=== PATIENT | female | born 1965 | race Caucasian/White ===

== ENCOUNTER → 2016-11-18 | Outpatient (CLI) | payer OTHER | LOC: M WUC 13:45 | PROVIDERS: ATTEND Physician Assistant Medical | DX: E78.2 Mixed hyperlipidemia (principal) ==

== ENCOUNTER → 2016-11-19 | Outpatient (REF) | payer OTHER | LOC: M SFHCPLAZ 15:31 | PROVIDERS: ATTEND Physician Assistant Medical | DX: R35.0 Frequency of micturition (principal) ==

== ENCOUNTER → 2016-11-24 | Outpatient (CLI) | payer OTHER ==
[2016-11-24 19:16] LABS: MEAN CORPUSCULAR HEMOGLOBIN 31.9 pg (27.0-33.0); MEAN CORPUSCULAR HGB CONC 32.7 g/dl (32.0-36.5); MEAN CORPUSCULAR VOLUME 97.7 fl (80.0-96.0); RED CELL DISTRIBUTION WIDTH 12.7 % (11.5-14.5); WHITE BLOOD COUNT 9.8 K/mm3 (4.0-10.0)
[2016-11-24 19:17] LABS: ALBUMIN 3.8 GM/DL (3.2-5.2); ALBUMIN/GLOBULIN RATIO 1.27 (1.00-1.93); ALKALINE PHOSPHATASE 94 U/L (45-117); ALT/SGPT 35 U/L (12-78); ANION GAP 6 MEQ/L (8-16); AST/SGOT 15 U/L (15-37); BILIRUBIN,TOTAL 0.3 MG/DL (0.2-1.0); BLOOD UREA NITROGEN 16 MG/DL (7-18); CALCIUM LEVEL 8.5 MG/DL (8.5-10.1); CARBON DIOXIDE LEVEL 25 MEQ/L (21-32); CHLORIDE LEVEL 111 MEQ/L (98-107); COMPLEMENT C3 139 MG/DL (90-180); COMPLEMENT C4 34.9 MG/DL (10-40); CREATININE FOR GFR 0.87 MG/DL (0.55-1.02); GLOMERULAR FILTRATION RATE > 60.0 (>51); GLUCOSE, FASTING 83 MG/DL (70-105); POTASSIUM SERUM 4.7 MEQ/L (3.5-5.1); SODIUM LEVEL 142 MEQ/L (136-145); THYROXINE (T4) 7.5 UG/DL (4.5-12.0); TOTAL PROTEIN 6.8 GM/DL (6.4-8.2)
[2016-11-24 19:22] LABS: THYROID PEROXIDASE ANTIBODY 33.4 U/ML (<60.0)
[2016-11-25 09:24] LABS: CONTROL LINE HPYORI INT CTR LINE PRESENT
== END ==
LOC: M SMT 14:07
PROVIDERS: ATTEND Allergy & Immunology Allergy
DX: L50.1 Idiopathic urticaria (principal)

== ENCOUNTER → 2017-01-11 | Outpatient (CLI) | payer OTHER ==
[2017-01-11 10:42] LABS: ALBUMIN 3.5 GM/DL (3.2-5.2); ALBUMIN/GLOBULIN RATIO 1.09 (1.00-1.93); ALKALINE PHOSPHATASE 95 U/L (45-117); ALT/SGPT 36 U/L (12-78); AST/SGOT 14 U/L (15-37); BILIRUBIN,DIRECT < 0.1 MG/DL (0.0-0.2); BILIRUBIN,TOTAL 0.3 MG/DL (0.2-1.0); CHOLESTEROL LEVEL 166 MG/DL (<200); TOTAL PROTEIN 6.7 GM/DL (6.4-8.2); TRIGLYCERIDES LEVEL 93 MG/DL (<150)
== END ==
LOC: M WUC 08:29
PROVIDERS: ATTEND Physician Assistant Medical
DX: E78.2 Mixed hyperlipidemia (principal); E78.00 Pure hypercholesterolemia, unspecified

== ENCOUNTER → 2017-03-10 | Outpatient (REF) | payer OTHER | LOC: M SFHCPLAZ 15:24 | PROVIDERS: ATTEND Physician Assistant Medical | DX: R30.0 Dysuria (principal) ==

== ENCOUNTER → 2017-09-11 | Outpatient (CLI) | payer OTHER ==
--- NOTE | 2017-09-11 16:32 | REP ---
Left foot four views : There is no fracture or dislocation. Mineralization and joint spaces are normal. There are no calcifications or foreign bodies. Impression: Negative left foot . Signed by Yemi Kelly MD 09/11/2017 04:23 P
--- NOTE | 2017-09-11 16:32 | REP ---
Left ankle four views : There is no fracture or dislocation. Mineralization and joint spaces are normal. There are no calcifications or foreign bodies. Impression: Negative left ankle . Signed by Yemi Kelly MD 09/11/2017 04:22 P
== END ==
LOC: M WUC 16:05
PROVIDERS: ATTEND Physician Assistant
DX: M25.572 Pain in left ankle and joints of left foot (principal)

== ENCOUNTER → 2017-09-14 | Outpatient (REF) | payer OTHER | LOC: M SFHCPLAZ 11:43 | PROVIDERS: ATTEND Physician Assistant Medical | DX: R82.90 Unspecified abnormal findings in urine (principal) ==

== ENCOUNTER → 2017-09-14 | Outpatient (REF) | payer OTHER | LOC: M SFHCPLAZ 08:55 | PROVIDERS: ATTEND Physician Assistant Medical | DX: E66.9 Obesity, unspecified (principal); R82.90 Unspecified abnormal findings in urine; Z53.9 Procedure and treatment not carried out, unspecified reason ==

== ENCOUNTER → 2017-10-19 | Outpatient (REF) | payer OTHER ==
[2017-10-19 18:18] LABS: ESTIMATED AVERAGE GLUCOSE 117 MG/DL (60-110); HEMOGLOBIN A1c 5.7 %
[2017-10-19 19:07] LABS: ALBUMIN 3.5 GM/DL (3.2-5.2); ALBUMIN/GLOBULIN RATIO 1.13 (1.00-1.93); ALKALINE PHOSPHATASE 94 U/L (45-117); ALT/SGPT 32 U/L (12-78); ANION GAP 6 MEQ/L (8-16); AST/SGOT 14 U/L (7-37); BILIRUBIN,TOTAL 0.3 MG/DL (0.2-1.0); BLOOD UREA NITROGEN 14 MG/DL (7-18); CALCIUM LEVEL 8.4 MG/DL (8.5-10.1); CARBON DIOXIDE LEVEL 26 MEQ/L (21-32); CHLORIDE LEVEL 110 MEQ/L (98-107); GLOMERULAR FILTRATION RATE > 60.0 (>51); GLUCOSE, FASTING 79 MG/DL (70-100); POTASSIUM SERUM 3.7 MEQ/L (3.5-5.1); SODIUM LEVEL 142 MEQ/L (136-145); TOTAL PROTEIN 6.6 GM/DL (6.4-8.2)
== END ==
LOC: M SFHCPLAZ 15:09
DX: E66.9 Obesity, unspecified (principal); R82.90 Unspecified abnormal findings in urine
CPT/HCPCS: 83036

== ENCOUNTER → 2017-11-19 | Outpatient (CLI) | payer OTHER | LOC: M WUC 09:58 | DX: M79.672 Pain in left foot (principal); M77.32 Calcaneal spur, left foot | CPT/HCPCS: 73630 ==

== ENCOUNTER → 2018-01-15 | Outpatient (CLI) | payer OTHER ==
[2018-01-19 00:06] LABS: HSV IgM TYPES 1&2 <0.91 Ratio (0.00-0.90)
== END ==
LOC: M LRY 08:33
DX: B00.9 Herpesviral infection, unspecified (principal)
CPT/HCPCS: 86694

== ENCOUNTER → 2018-01-29 | Outpatient (CLI) | payer OTHER | LOC: M WUC 12:31 | DX: S00.83XA Contusion of other part of head, initial encounter (principal); X58.XXXA Exposure to other specified factors, initial encounter; Y92.89 Other specified places as the place of occurrence of the external cause | CPT/HCPCS: 70150 ==

== ENCOUNTER 2018-02-24 08:01 | Day surgery (SDC) | payer OTHER ==
[2018-02-24] MEDS: NS 1,000 ML IV (08:30)
[2018-02-24] MEDS ORDERED: PROPOFOL 200 MG/20 ML VIAL As Ordered (09:53)
== END 2018-02-24 10:36 | disposition home or self-care (01) ==
LOC: M OPP 08:01
DX: Z12.11 Encounter for screening for malignant neoplasm of colon (principal); D12.2 Benign neoplasm of ascending colon; K64.8 Other hemorrhoids; E78.00 Pure hypercholesterolemia, unspecified; M17.9 Osteoarthritis of knee, unspecified; M54.5 Low back pain; G43.909 Migraine, unspecified, not intractable, without status migrainosus; L50.8 Other urticaria; R06.83 Snoring; Z79.899 Other long term (current) drug therapy; Z91.89 Other specified personal risk factors, not elsewhere classified; Z88.0 Allergy status to penicillin; Z90.710 Acquired absence of both cervix and uterus; Z87.09 Personal history of other diseases of the respiratory system; Z92.3 Personal history of irradiation
CPT/HCPCS: 45385

== ENCOUNTER → 2019-04-04 | Outpatient (CLI) | payer OTHER ==
[~2019-04-04] MED LIST: ALLE180T33 PO; ATOR1TAB21 PO; GABA-1171 PO; HYDR-3363 PO; LEVOTAB10 PO; MELO7.5T7 PO; MONT10TA2 PO; RANI150T PO; TOPI25TA10 PO; WELL100T2 PO
--- NOTE | 2019-04-04 22:10 | REP ---
Clinical: Pain and disability. Technique: AP, lateral, bilateral oblique, flexion/extension, and coned-down views of the lumbosacral spine. Findings: Alignment and lordosis maintained. Mild/moderate multilevel degenerative changes include endplate sclerosis with disc space narrowing and osteophytosis primarily identified at L5-S1, L4-5, and L1-2. No acute fracture / compression injury or subluxation. No obvious spondylolysis. Impression: Mild/moderate multilevel degenerative spondylosis. Electronically Signed by Cedric Fierro MD 04/04/2019 10:00 P
--- NOTE | 2019-04-04 22:10 | REP ---
Clinical: thoracic pain. Technique: AP, lateral, and swimmers views. Findings: Alignment and kyphosis is maintained. Vertebral bodies intact. No acute fracture / compression injury or subluxation. No degenerative changes. Paravertebral soft tissues are normal. Impression: Normal thoracic spine series. Electronically Signed by Cedric Fierro MD 04/04/2019 10:01 P
== END ==
LOC: M RAD 09:40
PROVIDERS: ATTEND Family Medicine
DX: M51.36 Other intervertebral disc degeneration, lumbar region (principal)

== ENCOUNTER 2019-05-10 11:04 | Emergency (ER) | payer OTHER ==
[~2019-05-10] VITALS: Ht 165.1 cm; Wt 101.4 kg
[2019-05-10] MEDS ORDERED: KETOROLAC 30 MG/ML VIAL (J1885) IV ONE (11:45)
[2019-05-10] MEDS ORDERED: ACETAMINOPHEN 325 MG TAB PO ONE (11:45)
[2019-05-10] MEDS ORDERED: NS 1,000 ML IV ONE (11:45)
[2019-05-10] MEDS ORDERED: METOCLOPRAMIDE INJ 10MG/2ML VIAL (J2765) IV ONE (13:15)
[2019-05-10 14:14] VITALS: BP 136/81
== END 2019-05-10 14:32 | disposition home or self-care (01) ==
LOC: M ED 11:04
DX: G43.909 Migraine, unspecified, not intractable, without status migrainosus (principal); Z79.899 Other long term (current) drug therapy; Z88.1 Allergy status to other antibiotic agents; Z91.018 Allergy to other foods
CPT/HCPCS: 96374; 96375; 99284; J1885; J2765

== ENCOUNTER → 2019-09-21 | Outpatient (CLI) | payer OTHER ==
[2019-09-21 12:58] LABS: HEMATOCRIT 43.8 % (36.0-47.0); MEAN CORPUSCULAR VOLUME 97.1 fl (80.0-96.0); PLATELET COUNT, AUTOMATED 355 10^3/uL (150-450); RED BLOOD COUNT 4.51 10^6/uL (4.00-5.40); WHITE BLOOD COUNT 5.4 10^3/uL (4.0-10.0)
--- NOTE | 2019-09-21 12:58 | REP ---
Clinical: Obesity . Comparison: None . Technique: PA and lateral. Findings: The mediastinum and cardiac silhouette are normal. The lung pitt are clear and without acute consolidation, effusion, or pneumothorax. The skeletal structures are intact and normal. Impression: 1. No acute cardiopulmonary process. Electronically Signed by Cedric Fierro MD 09/21/2019 12:49 P
[2019-09-21 13:20] LABS: HEMOGLOBIN A1c 5.9 %
[2019-09-21 13:29] LABS: ALBUMIN 3.5 GM/DL (3.2-5.2); ALT/SGPT 62 U/L (12-78); BILIRUBIN,TOTAL 0.4 MG/DL (0.2-1.0); BLOOD UREA NITROGEN 18 MG/DL (7-18); CARBON DIOXIDE LEVEL 26 MEQ/L (21-32); CHLORIDE LEVEL 112 MEQ/L (98-107); CHOLESTEROL LEVEL 200 MG/DL (<200); CHOLESTEROL RISK RATIO 3.389 (<5); CREATININE FOR GFR 0.96 MG/DL (0.55-1.30); FERRITIN 149 NG/ML (8-252); FREE T4 0.87 NG/DL (0.76-1.46); GLOMERULAR FILTRATION RATE > 60.0 (>51); GLUCOSE, FASTING 82 MG/DL (70-100); HDL CHOLESTEROL 59 MG/DL (>40); IRON (FE) 100 UG/DL (50-170); LDL CHOLESTEROL 120 MG/DL (<100); NON-HDL-C 141 MG/DL; PERCENT SATURATION 38.6 % (13.2-45.0); POTASSIUM SERUM 4.1 MEQ/L (3.5-5.1); SODIUM LEVEL 144 MEQ/L (136-145); TOTAL 25(OH) VITAMIN D 26.4 NG/ML (30.0-100.0); TOTAL IRON BINDING CAPACITY 259 UG/DL (250-450); TRIGLYCERIDES LEVEL 103 MG/DL (<150); VITAMIN B12 LEVEL 434 PG/ML (247-911)
[2019-09-21 13:45] LABS: FOLATE 14.3 NG/ML (>5.4)
== END ==
LOC: M LAB 12:15
PROVIDERS: ATTEND Surgery
DX: E66.01 Morbid (severe) obesity due to excess calories (principal)

== ENCOUNTER → 2019-09-24 | Outpatient (CLI) | payer OTHER ==
--- NOTE | 2019-09-24 09:38 | REP ---
Clinical: Preoperative evaluation. Technique: Real time rose scale and color evaluation using curved array transducer. Findings: Liver includes 2.5 x 1.3 x 1.7 cm septated cyst in the left lobe, and is otherwise unremarkable in appearance. The pancreas is incompletely evaluated due to interposed bowel gas but visualized portions appear normal. Gallbladder is unremarkable and without gallstones, wall thickening, or pericholecystic fluid. No biliary ductal dilatation is appreciated and the common bile duct measures 5 mm diameter. The right kidney is normal in reniform shape without hydronephrosis and measures 11.0 x 5.5 x 5.0 cm with 1.1 cm complex lower pole cyst. No ascites. Impression: 1. 2.5 cm septated hepatic cyst. 2. 1.1 cm complex lower pole right renal lesion likely complex cyst. Electronically Signed by Cedric Fierro MD 09/24/2019 09:30 A
== END ==
LOC: M RAD 08:56
PROVIDERS: ATTEND Registered Nurse
DX: N28.1 Cyst of kidney, acquired (principal); K76.89 Other specified diseases of liver; E66.01 Morbid (severe) obesity due to excess calories

== ENCOUNTER 2019-10-22 11:21 | Emergency (ER) | payer OTHER ==
[~2019-10-22] VITALS: Ht 165.1 cm; Wt 106.0 kg
[2019-10-22] MEDS ORDERED: CALC500C16 (12:03)
[2019-10-22] MEDS ORDERED: OMEP-221 (12:03)
[2019-10-22] MEDS ORDERED: PARO5TAB (12:03)
--- NOTE | 2019-10-22 13:04 | REP ---
Right ankle four views : There is no fracture or dislocation. Mineralization and joint spaces are normal. There are no calcifications or foreign bodies. There is a small accessory ossicle at the tip of the fibula. Impression: Negative right ankle. Left ankle four views : There is no fracture or dislocation. Mineralization and joint spaces are normal. There are no calcifications or foreign bodies. Impression: Negative left ankle . Electronically Signed by Yemi Kelly MD 10/22/2019 12:55 P
--- NOTE | 2019-10-22 13:06 | REP ---
Right foot four views : There is no fracture or dislocation. Mineralization and joint spaces are normal. There are no calcifications or foreign bodies. Impression: Negative right foot Left foot four views : There is no fracture or dislocation. Mineralization and joint spaces are normal. There are no calcifications or foreign bodies. Impression: Negative left foot . . Electronically Signed by Yemi Kelly MD 10/22/2019 12:57 P
[2019-10-22] MEDS ORDERED: NORC1TAB7 PO (14:03)
[2019-10-22 14:22] VITALS: BP 138/91
== END 2019-10-22 14:28 | disposition home or self-care (01) ==
LOC: M ED 11:21
DX: S93.402A Sprain of unspecified ligament of left ankle, initial encounter (principal); S90.31XA Contusion of right foot, initial encounter; W00.1XXA Fall from stairs and steps due to ice and snow, initial encounter; Z79.899 Other long term (current) drug therapy; Z88.8 Allergy status to other drugs, medicaments and biological substances; Z91.02 Food additives allergy status

== ENCOUNTER 2019-12-02 11:57 | Emergency (ER) | payer OTHER ==
[~2019-12-02] VITALS: Ht 165.1 cm; Wt 106.9 kg
[~2019-12-02 11:57] MED LIST changes: +CALC500C16; -MONT10TA2 PO; +MONT10TA4 PO; +NORC1TAB7 PO; +OMEP-221; +PARO5TAB
--- NOTE | 2019-12-02 12:44 | REP ---
Right shoulder series: Three views. History: Injury in a fall. Findings: Three views of the right shoulder demonstrate normal alignment of the glenohumeral and acromioclavicular joints. No fracture or subluxation is seen. There is minimal spurring at the AC joint. Impression: No traumatic abnormality noted. Electronically Signed by Satnam Beck MD 12/02/2019 12:36 P
[2019-12-02] MEDS ORDERED: NORC1TAB7 PO (13:00)
[2019-12-02 13:11] VITALS: BP 150/82
== END 2019-12-02 13:16 | disposition home or self-care (01) ==
LOC: M ED 11:57
DX: S49.91XA Unspecified injury of right shoulder and upper arm, initial encounter (principal); W01.0XXA Fall on same level from slipping, tripping and stumbling without subsequent striking against object, initial encounter; Y92.018 Other place in single-family (private) house as the place of occurrence of the external cause; E78.5 Hyperlipidemia, unspecified; Z79.899 Other long term (current) drug therapy; Z91.018 Allergy to other foods; Z88.1 Allergy status to other antibiotic agents; F17.210 Nicotine dependence, cigarettes, uncomplicated

== ENCOUNTER 2020-01-25 00:46 | Emergency (ER) | payer OTHER ==
[~2020-01-25] VITALS: Ht 165.1 cm; Wt 93.9 kg
[2020-01-25] MEDS ORDERED: ONDANSETRON 4MG/2ML VIAL IV ONE ×2 (01:30→03:15)
[2020-01-25] MEDS ORDERED: KETOROLAC 30 MG/ML 1ML VIAL IV ONE ×2 (01:30→03:00)
[2020-01-25] MEDS ORDERED: MULTCAP PO (01:40)
[2020-01-25] MEDS ORDERED: B-12100T2 PO (01:40)
[2020-01-25 01:59] LABS: BASO % 0.3 % (0.0-1.0); EOS # 0.1 10^3/uL (0.0-0.5); EOS % 1.4 % (0.0-3.0); HEMATOCRIT 39.3 % (36.0-47.0); HEMOGLOBIN 12.7 g/dl (12.0-15.5); LYMPH # 2.1 10^3/uL (1.5-5.0); LYMPH % 29.5 % (24.0-44.0); MEAN CORPUSCULAR HEMOGLOBIN 30.3 pg (27.0-33.0); MEAN CORPUSCULAR HGB CONC 32.3 g/dl (32.0-36.5); MEAN CORPUSCULAR VOLUME 93.8 fl (80.0-96.0); MONO # 0.4 10^3/uL (0.0-0.8); MONO % 5.4 % (0.0-5.0); NEUTROPHILS # 4.5 10^3/uL (1.5-8.5); NEUTROPHILS % 63.1 % (36.0-66.0); PLATELET COUNT, AUTOMATED 289 10^3/uL (150-450); RED BLOOD COUNT 4.19 10^6/uL (4.00-5.40); WHITE BLOOD COUNT 7.1 10^3/uL (4.0-10.0)
--- NOTE | 2020-01-25 02:48 | REPVR ---
PROCEDURE INFORMATION: Exam: CT Abdomen And Pelvis Without Contrast Exam date and time: 01/25/2020 2:21 AM Age: 54 years old Clinical indication: Abdominal pain; Flank; Right; Additional info: Right renal colic TECHNIQUE: Imaging protocol: Computed tomography of the abdomen and pelvis without contrast. Radiation optimization: All CT scans at this facility use at least one of these dose optimization techniques: automated exposure control; mA and/or kV adjustment per patient size (includes targeted exams where dose is matched to clinical indication); or iterative reconstruction. COMPARISON: CT ABD PELVIS W/O FOL BY WIT 05/13/2015 9:24 AM FINDINGS: Lungs: Bilateral dependent atelectasis. Linear atelectasis or scarring in the left lower lobe. Mediastinum: Small hiatal hernia. Liver: Simple appearing 1.7 x 1 cm left hepatic lobe cyst. Focal fat in the left hepatic lobe along the falciform ligament fissure. Gallbladder and bile ducts: Distended gallbladder without specific signs of acute cholecystitis. Pancreas: Normal. No ductal dilation. Spleen: Normal. No splenomegaly. Adrenals: Normal. No mass. Kidneys and ureters: Mild right hydroureteronephrosis to the level of a 3 mm calculus in the distal right ureter. Stomach and bowel: Status post Coleman-en-Y gastric bypass. Appendix: No evidence of appendicitis. Intraperitoneal space: Unremarkable. No free air. No significant fluid collection. Vasculature: Unremarkable. No abdominal aortic aneurysm. Lymph nodes: Unremarkable. No enlarged lymph nodes. Bladder: Unremarkable as visualized. Reproductive: Status post hysterectomy. Bones/joints: Mild levoscoliosis of the lumbar spine. Degenerative disease and facet hypertrophy of the lower lumbar spine. Soft tissues: Unremarkable. IMPRESSION: Mild right hydroureteronephrosis to the level of a 3 mm calculus in the distal right ureter. Electronically signed by: Clay Cook On 01/25/2020 02:48:14 AM
[2020-01-25] MEDS ORDERED: PERC5TAB12 PO (06:46)
[2020-01-25] MEDS ORDERED: ONDA4TAB6 PO (06:46)
[2020-01-25] MEDS ORDERED: FLOM0.4C39 PO (06:46)
[2020-01-25] MEDS ORDERED: NORC1TAB7 PO (06:50)
[2020-01-25 07:13] VITALS: BP 110/68
== END 2020-01-25 07:15 | disposition home or self-care (01) ==
LOC: M ED 00:46
DX: N20.1 Calculus of ureter (principal); K44.9 Diaphragmatic hernia without obstruction or gangrene; K76.89 Other specified diseases of liver; R11.2 Nausea with vomiting, unspecified; E78.5 Hyperlipidemia, unspecified; M51.36 Other intervertebral disc degeneration, lumbar region; Z98.84 Bariatric surgery status; Z88.1 Allergy status to other antibiotic agents; Z79.899 Other long term (current) drug therapy
CPT/HCPCS: 74176; 80047; 81001; 85025; 87088; 87186; 96374; 96375; 96376; 99284; J1885; J2405

== ENCOUNTER → 2020-01-30 | Outpatient (REF) | payer OTHER ==
[~2020-01-30] MED LIST changes: +B-12100T2 PO; +FLOM0.4C39 PO; +MULTCAP PO; +ONDA4TAB6 PO; +PERC5TAB12 PO
[2020-01-30 13:32] LABS: ALBUMIN 3.2 GM/DL (3.2-5.2); ALT/SGPT 88 U/L (12-78); BILIRUBIN,TOTAL 0.5 MG/DL (0.2-1.0); BLOOD UREA NITROGEN 12 MG/DL (7-18); CALCIUM LEVEL 8.9 MG/DL (8.5-10.1); CARBON DIOXIDE LEVEL 26 MEQ/L (21-32); CHLORIDE LEVEL 111 MEQ/L (98-107); CHOLESTEROL LEVEL 203 MG/DL (<200); CHOLESTEROL RISK RATIO 5.205 (<5); CREATININE FOR GFR 0.86 MG/DL (0.55-1.30); GLOMERULAR FILTRATION RATE > 60.0 (>51); GLUCOSE, FASTING 84 MG/DL (70-100); HDL CHOLESTEROL 39 MG/DL (>40); LDL CHOLESTEROL 139 MG/DL (<100); NON-HDL-C 164 MG/DL; POTASSIUM SERUM 3.6 MEQ/L (3.5-5.1); SODIUM LEVEL 145 MEQ/L (136-145); TOTAL PROTEIN 6.3 GM/DL (6.4-8.2); TRIGLYCERIDES LEVEL 123 MG/DL (<150)
[2020-01-30 13:39] LABS: TOTAL 25(OH) VITAMIN D 30.1 NG/ML (30.0-100.0)
== END ==
LOC: M PLALAB 11:13
PROVIDERS: ATTEND Family Medicine
DX: N20.1 Calculus of ureter (principal); E78.2 Mixed hyperlipidemia; E55.9 Vitamin D deficiency, unspecified

== ENCOUNTER → 2020-02-20 | Outpatient (REF) | payer OTHER ==
[2020-02-20 18:54] LABS: APPEARANCE, URINE TURBID (CLEAR); BACTERIA, URINE AUTO NEGATIVE (NEGATIVE); BILIRUBIN, URINE AUTO NEGATIVE (NEGATIVE); BLOOD, URINE BLOOD NEGATIVE (NEGATIVE); CALCIUM OXALATE CRYSTALS MODERATE; COLOR, URINE AMBER (YELLOW); GLUCOSE, URINE (UA) AUTO NEGATIVE (NEGATIVE); KETONE, URINE AUTO NEGATIVE (NEGATIVE); LEUKOCYTE ESTERASE, URINE AUTO 2+ (NEGATIVE); MUCUS, URINE SMALL (NEGATIVE); NITRITE, URINE AUTO NEGATIVE (NEGATIVE); PROTEIN, URINE AUTO NEGATIVE (NEGATIVE); RBC, URINE AUTO 0 /HPF (0-3); SPECIFIC GRAVITY URINE AUTO 1.025 (1.002-1.035); SQUAMOUS EPITHELIAL CELL UR AU 11 /HPF (0-6); UROBILINOGEN, URINE AUTO 0.2 mg/dL (0.0-2.0); WBC, URINE AUTO 10 /HPF (0-3)
== END ==
LOC: M SMT 16:59
PROVIDERS: ATTEND Nurse Practitioner Family
DX: R31.29 Other microscopic hematuria (principal)

== ENCOUNTER → 2020-04-03 | Outpatient (REF) | payer OTHER ==
[~2020-04-03] MED LIST changes: -CALC500C16; +CALC500C16 PO; -OMEP-221; +OMEP-221 PO; +TRAM50TA2 PO
[2020-04-03 13:33] LABS: BASO % 0.8 % (0.0-1.0); EOS # 0.2 10^3/uL (0.0-0.5); EOS % 3.3 % (0.0-3.0); HEMATOCRIT 42.6 % (36.0-47.0); HEMOGLOBIN 13.8 g/dl (12.0-15.5); LYMPH # 2.1 10^3/uL (1.5-5.0); LYMPH % 41.1 % (24.0-44.0); MEAN CORPUSCULAR HEMOGLOBIN 30.9 pg (27.0-33.0); MEAN CORPUSCULAR HGB CONC 32.4 g/dl (32.0-36.5); MEAN CORPUSCULAR VOLUME 95.3 fl (80.0-96.0); MONO # 0.3 10^3/uL (0.0-0.8); NEUTROPHILS # 2.5 10^3/uL (1.5-8.5); NEUTROPHILS % 48.6 % (36.0-66.0); PLATELET COUNT, AUTOMATED 318 10^3/uL (150-450); RED BLOOD COUNT 4.47 10^6/uL (4.00-5.40); WHITE BLOOD COUNT 5.2 10^3/uL (4.0-10.0)
[2020-04-03 13:45] LABS: ALBUMIN 3.4 GM/DL (3.2-5.2); ALT/SGPT 50 U/L (12-78); BILIRUBIN,TOTAL 0.5 MG/DL (0.2-1.0); BLOOD UREA NITROGEN 11 MG/DL (7-18); CALCIUM LEVEL 9.2 MG/DL (8.5-10.1); CARBON DIOXIDE LEVEL 25 MEQ/L (21-32); CHLORIDE LEVEL 110 MEQ/L (98-107); CHOLESTEROL LEVEL 214 MG/DL (<200); CHOLESTEROL RISK RATIO 5.944 (<5); FERRITIN 179 NG/ML (8-252); GLOMERULAR FILTRATION RATE > 60.0 (>51); GLUCOSE, FASTING 87 MG/DL (70-100); HDL CHOLESTEROL 36 MG/DL (>40); IRON (FE) 64 UG/DL (50-170); LDL CHOLESTEROL 151 MG/DL (<100); NON-HDL-C 178 MG/DL; SODIUM LEVEL 143 MEQ/L (136-145); TOTAL PROTEIN 6.7 GM/DL (6.4-8.2); TRIGLYCERIDES LEVEL 135 MG/DL (<150)
[2020-04-08 10:11] LABS: AFP TUMOR TOTAL 3.3 ng/mL (0.0-8.0)
== END ==
LOC: M PLALAB 11:57
PROVIDERS: ATTEND Physician Assistant Medical
DX: Z98.84 Bariatric surgery status (principal); R79.89 Other specified abnormal findings of blood chemistry; E78.2 Mixed hyperlipidemia

== ENCOUNTER 2020-04-11 09:11 | Emergency (ER) | payer OTHER ==
[~2020-04-11] VITALS: Ht 165.1 cm; Wt 84.6 kg
[~2020-04-11 09:11] MED LIST changes: -TRAM50TA2 PO
--- NOTE | 2020-04-11 10:31 | REP ---
REASON FOR EXAM: Pain. No history of trauma given. FINDINGS: The joint spaces are symmetric and relatively well maintained. There is no evidence of acute fracture or destructive osseous lesion. IMPRESSION: Negative. Electronically Signed by Colt Mcnally DO 04/11/2020 11:27 A
--- NOTE | 2020-04-11 10:38 | REP ---
REASON FOR EXAM: Pain. COMPARISON: 10/22/2019 A tiny smoothly marginated well-corticated ossific density distal to the distal fibular tip is unchanged. There does appear to be some mild lateral soft tissue swelling representing a change from the prior exam, however. There is no acute fracture. The mortise remains intact. IMPRESSION: Soft tissue swelling. No evidence of an acute fracture or otherwise change from the prior exam as described above. Electronically Signed by Colt Mcnally DO 04/11/2020 11:27 A
[2020-04-11 11:12] VITALS: BP 132/85
[2020-04-11] MEDS ORDERED: TRAM50TA2 PO (13:09)
== END 2020-04-11 11:13 | disposition home or self-care (01) ==
LOC: M ED 09:11
DX: S93.401A Sprain of unspecified ligament of right ankle, initial encounter (principal); W18.49XA Other slipping, tripping and stumbling without falling, initial encounter; Y92.009 Unspecified place in unspecified non-institutional (private) residence as the place of occurrence of the external cause; Y93.9 Activity, unspecified; Y99.9 Unspecified external cause status; K21.9 Gastro-esophageal reflux disease without esophagitis; E78.5 Hyperlipidemia, unspecified; M89.8X9 Other specified disorders of bone, unspecified site; Z79.899 Other long term (current) drug therapy; Z87.828 Personal history of other (healed) physical injury and trauma; Z88.8 Allergy status to other drugs, medicaments and biological substances

== ENCOUNTER → 2020-05-22 | Outpatient (CLI) | payer OTHER ==
[~2020-05-22] MED LIST changes: +TRAM50TA2 PO
[2020-05-22 15:46] LABS: FREE T4 0.95 NG/DL (0.76-1.46); THYROID STIMULATING HORMONE 1.31 uIU/ML (0.358-3.740)
[2020-05-29 20:07] LABS: FATS NEUTRAL Increased (.); FATS TOTAL Increased (.); PANCREATIC ELASTASE STOOL >500 (>200)
== END ==
LOC: M LAB 14:26
PROVIDERS: ATTEND Internal Medicine Gastroenterology
DX: R19.7 Diarrhea, unspecified (principal)

== ENCOUNTER → 2020-06-03 | Outpatient (CLI) | payer OTHER ==
[~2020-06-03] MED LIST changes: +E-Z-GAS II EFFERVESCENT PACKET (SODIUM BICARB./CITRIC ACID/SIMETHICONE) As Ordered ONE; +E-Z-HD 98% w/w 340GM SUSP BTL As Ordered ONE; +E-Z-PAQUE 96% w/w SUSP 176GM BTL As Ordered ONE
--- NOTE | 2020-06-25 11:30 | REP ---
UPPER GI AIR CONTRAST AND SMALL BOWEL FOLLOW-THROUGH The procedure was performed under the direct supervision of Dr. Poole. The images were reviewed with Dr. Poole. The guest service team leader film shows no organomegaly or pathologic masses. The intestinal gas pattern is nonspecific. There are bowel sutures noted in the left abdomen consistent with the patients history of gastric bypass. Liquid barium was given in the erect and prone oblique positions in order to perform a single-contrast upper GI examination. Additionally, liquid barium was given at the end of the examination in order to perform a small bowel follow- through. The oral and pharyngeal stages of deglutition are unremarkable. Esophageal transport is prompt and efficient, and there is no esophagitis, stricture, or mucosal ring. There is a sliding-type hiatal hernia. Gastroesophageal reflux is not demonstrated on this examination. There are postsurgical changes of the stomach consistent with the patients history of gastric bypass. Contrast passes through the pouch and anastomosis without delay. There is no evidence of gastritis, neoplasm, or ulcer disease. There is no evidence of stricture or obstruction. The visualized portion of the proximal small bowel appears normal in course and caliber. The barium column was followed through the small bowel to the level of the terminal ileum. Small bowel transit time was approximately 90 minutes. During fluoroscopy, gentle palpation shows all loops are freely movable and pliable. There are no fixed or angulated loops. The small bowel mucosal pattern is normal in course and caliber. There is no transition to suggest a partial small bowel obstruction. Spot filming of the terminal ileum shows it to be unremarkable. IMPRESSION: Postsurgical changes of the stomach consistent with the patients history of gastric bypass. There is a sliding-type hiatal hernia. Otherwise, unremarkable single contrast upper gastrointestinal (GI) and small bowel follow-through examination. 1.3 minutes of fluoroscopy time was utilized for this procedure. [facility]
== END ==
LOC: M RAD 07:58
PROVIDERS: ATTEND Internal Medicine Gastroenterology
DX: R19.7 Diarrhea, unspecified (principal); K62.5 Hemorrhage of anus and rectum; Z98.84 Bariatric surgery status; K44.9 Diaphragmatic hernia without obstruction or gangrene

== ENCOUNTER 2020-07-08 11:05 | Emergency (ER) | payer OTHER ==
[~2020-07-08] VITALS: Ht 167.6 cm; Wt 75.4 kg
[~2020-07-08 11:05] MED LIST changes: -E-Z-GAS II EFFERVESCENT PACKET (SODIUM BICARB./CITRIC ACID/SIMETHICONE) As Ordered ONE; -E-Z-HD 98% w/w 340GM SUSP BTL As Ordered ONE; -E-Z-PAQUE 96% w/w SUSP 176GM BTL As Ordered ONE
--- NOTE | 2020-07-08 12:32 | REPVR ---
PROCEDURE INFORMATION: Exam: XR Left Knee Exam date and time: 07/08/2020 12:20 PM Age: 55 years old Clinical indication: Injury or trauma; Fall; Sprain or strain; Patella or knee; Left; Additional info: Left knee pain TECHNIQUE: Imaging protocol: XR Left knee. Views: 4 or more views. COMPARISON: No relevant prior studies available. FINDINGS: Bones/joints: No acute bony injury or malalignment. Soft tissues: No radiopaque foreign body. IMPRESSION: No acute bony injury or malalignment. Electronically signed by: Jesús Harris On 07/08/2020 12:32:32 PM
--- NOTE | 2020-07-08 12:32 | REPVR ---
PROCEDURE INFORMATION: Exam: XR Left Foot Complete Exam date and time: 07/08/2020 12:20 PM Age: 55 years old Clinical indication: Injury or trauma; Fall; Sprain or strain; Foot; Left; Additional info: Left foot pain TECHNIQUE: Imaging protocol: XR Left foot. Views: 3 or more views. COMPARISON: CR Foot, complete 10/22/2019 12:27 PM FINDINGS: Bones/joints: No acute bony injury or malalignment in the visualized left foot. Small calcaneal spur. Osteopenia and degenerative change. Soft tissues: No radiopaque foreign body. IMPRESSION: No acute bony injury or malalignment in the visualized left foot. Electronically signed by: Jesús Harris On 07/08/2020 12:31:59 PM
[2020-07-08 12:57] VITALS: BP 133/86
== END 2020-07-08 13:08 | disposition home or self-care (01) ==
LOC: M ED 11:05
DX: S83.92XA Sprain of unspecified site of left knee, initial encounter (principal); W01.0XXA Fall on same level from slipping, tripping and stumbling without subsequent striking against object, initial encounter; Y92.9 Unspecified place or not applicable; Y93.K1 Activity, walking an animal; Y99.9 Unspecified external cause status; K21.9 Gastro-esophageal reflux disease without esophagitis; E78.5 Hyperlipidemia, unspecified; F17.200 Nicotine dependence, unspecified, uncomplicated; Z79.899 Other long term (current) drug therapy; Z98.84 Bariatric surgery status; Z88.1 Allergy status to other antibiotic agents; Z91.02 Food additives allergy status

== ENCOUNTER → 2020-07-24 | Outpatient (CLI) | payer OTHER | LOC: M LABSMTC 10:42 | PROVIDERS: ATTEND Anesthesiology | DX: Z11.59 Encounter for screening for other viral diseases (principal); Z20.828 Contact with and (suspected) exposure to other viral communicable diseases | CPT/HCPCS: C9803; U0003 ==

== ENCOUNTER 2020-07-29 09:45 | Day surgery (SDC) | payer OTHER ==
[~2020-07-29] VITALS: Ht 167.6 cm; Wt 72.6 kg
[~2020-07-29 09:45] MED LIST changes: +LIDOCAINE 2% 100MG/5ML SDV (FOR ANES.) As Ordered ONE; +NS 1,000 ML IV ONE; +propofoL 200 MG/20 ML VIAL As Ordered ONE
--- NOTE | 2020-07-29 12:00 | ROOR ---
Patient Name: Adriana Maria Procedure Date: 07/29/2020 11:26 AM Date of : 1965 Age: 55 Room: [facility] Gender: Female Note Status: Finalized Procedure: Colonoscopy Indications: Generalized abdominal pain, Hematochezia, Clinically significant diarrhea of unexplained origin Providers: Samuel VELÁZQUEZ MD Referring MD: Nicole LANE Requesting Provider: Medicines: Monitored Anesthesia Care Complications: No immediate complications. Procedure: Pre-Anesthesia Assessment: - The heart rate, respiratory rate, oxygen saturations, blood pressure, adequacy of pulmonary ventilation, and response to care were monitored throughout the procedure. The Colonoscope was introduced through the anus and advanced to 10 cm into the ileum. The colonoscopy was performed without difficulty. The patient tolerated the procedure well. The quality of the bowel preparation was good. Findings: The perianal and digital rectal examinations were normal. A 5 mm polyp was found in the sigmoid colon. The polyp was sessile. The polyp was removed with a cold snare. Resection and retrieval were complete. Small Internal Hemorrhoids. Biopsies for histology were taken with a cold forceps for evaluation of microscopic colitis. The terminal ileum appeared normal. The exam was otherwise without abnormality on direct and retroflexion views. Impression: - One 5 mm polyp in the sigmoid colon, removed with a cold snare. Resected and retrieved. - Small Internal Hemorrhoids. - The colon examination was otherwise normal on direct and retroflexion views. - The examined portion of the ileum was normal. - Biopsies were taken with a cold forceps for evaluation of microscopic colitis. Recommendation: - Telephone endoscopist for pathology results in 2 weeks. - Recommend an oral antibiotic (doxy) for 10 days. (for possible SIBO)-Increased fecal fat/normal elastase - (the script was sent to your pharmacy on file) Samuel Velázquez MD Samuel VELÁZQUEZ MD 07/29/2020 11:59:22 AM Electronically signed by Samuel VELÁZQUEZ MD Number of Addenda: 0 Note Initiated On: 07/29/2020 11:26 AM Estimated Blood Loss: Estimated blood loss: none.
[2020-07-29 12:15] VITALS: BP 159/78
== END 2020-07-29 12:35 | disposition home or self-care (01) ==
LOC: M OPP 09:45
PROVIDERS: ATTEND Internal Medicine Gastroenterology
DX: K63.5 Polyp of colon (principal); R10.84 Generalized abdominal pain; K92.1 Melena; R19.7 Diarrhea, unspecified; L50.9 Urticaria, unspecified; F17.210 Nicotine dependence, cigarettes, uncomplicated; Z79.899 Other long term (current) drug therapy; Z88.1 Allergy status to other antibiotic agents; Z91.018 Allergy to other foods; Z85.41 Personal history of malignant neoplasm of cervix uteri; Z92.21 Personal history of antineoplastic chemotherapy; Z98.84 Bariatric surgery status

== ENCOUNTER 2020-08-25 16:45 | Emergency (ER) | payer OTHER ==
[~2020-08-25] VITALS: Ht 165.1 cm; Wt 72.2 kg
[~2020-08-25 16:45] MED LIST changes: -LIDOCAINE 2% 100MG/5ML SDV (FOR ANES.) As Ordered ONE; -MONT10TA4 PO; +MONT5TAB2 PO; -NS 1,000 ML IV ONE; -propofoL 200 MG/20 ML VIAL As Ordered ONE
[2020-08-25] MEDS ORDERED: LIDOCAINE 4% CREAM 5GM (LMX4) TOP ONE (17:45)
[2020-08-25] MEDS ORDERED: KETOROLAC 60MG 2ML VIAL IM ONE (17:45)
--- NOTE | 2020-08-25 18:19 | REP ---
INDICATION: fall and twist, pain WB COMPARISON: 07/08/2020 TECHNIQUE: Five views FINDINGS: The compartments are symmetric and relatively well maintained. There is no acute fracture or destructive osseous lesion. IMPRESSION: No change from the prior exam. No acute abnormality. <Electronically signed by Colt Mcnally > 08/25/20 [id number]
[2020-08-25] MEDS ORDERED: ANEC4CRE3 TOP (18:44)
[2020-08-25] MEDS ORDERED: VOLT1GEL15 TOP (18:44)
[2020-08-25 18:56] VITALS: BP 132/86
== END 2020-08-25 18:57 | disposition home or self-care (01) ==
LOC: M ED 16:45
DX: S89.92XA Unspecified injury of left lower leg, initial encounter (principal); W01.0XXA Fall on same level from slipping, tripping and stumbling without subsequent striking against object, initial encounter; Y92.018 Other place in single-family (private) house as the place of occurrence of the external cause; E78.5 Hyperlipidemia, unspecified; M51.36 Other intervertebral disc degeneration, lumbar region; Z98.84 Bariatric surgery status; Z79.899 Other long term (current) drug therapy; Z88.1 Allergy status to other antibiotic agents; Z91.018 Allergy to other foods
CPT/HCPCS: 73564; 96372; 99283; J1885

== ENCOUNTER → 2020-10-07 | Outpatient (CLI) | payer OTHER ==
[~2020-10-07] MED LIST changes: +ANEC4CRE3 TOP; +VOLT1GEL15 TOP
== END ==
LOC: M LABSMTC 14:46
PROVIDERS: ATTEND Family Medicine
DX: Z20.822 Contact with and (suspected) exposure to COVID-19 (principal)

== ENCOUNTER → 2020-11-19 | Outpatient (CLI) | payer OTHER ==
[~2020-11-19] MED LIST changes: +GASTROGRAFIN SOLUTION 30ML (Q9963) As Ordered ONE; +ISOVUE-370 76% 100ML VIAL As Ordered ONE; +MONT10TA10 PO; -MONT5TAB2 PO; +SENN-52 PO
--- NOTE | 2020-11-19 18:17 | REPVR ---
PROCEDURE INFORMATION: Exam: CT Abdomen And Pelvis With Contrast Exam date and time: 11/19/2020 5:50 PM Age: 55 years old Clinical indication: Abdominal pain; Localized; Left upper quadrant (luq); Additional info: Luq pain, surgical operation with anastomosis TECHNIQUE: Imaging protocol: Computed tomography of the abdomen and pelvis with contrast. Radiation optimization: All CT scans at this facility use at least one of these dose optimization techniques: automated exposure control; mA and/or kV adjustment per patient size (includes targeted exams where dose is matched to clinical indication); or iterative reconstruction. Contrast material: ISOVUE 370; Contrast volume: 100 ml; Contrast route: INTRAVENOUS (IV); COMPARISON: CT ABD PELVIS W/O FOL BY WIT 02/14/2020 7:47 AM FINDINGS: Liver: Mild diffuse fatty infiltration of the liver with a small area of focal fatty infiltrate adjacent to the ligamentum teres on image 33 of series 201 measuring 1.3 x 1.2 cm in size. A small 1.2 x 1.2 cm hypodense mass is present in the lateral segment left lobe of the liver on images 24 and 25 of series 201, stable and unchanged since the previous CT abdomen and pelvis study from 02/14/2020. This has the appearance of a benign cyst. Gallbladder and bile ducts: Normal. No calcified stones. No ductal dilation. Pancreas: Normal. No ductal dilation. Spleen: Normal. No splenomegaly. Adrenal glands: Normal. No mass. Kidneys and ureters: There is a small 11 mm diameter hypodense mass in the lower pole right kidney. The mass is unchanged since the previous CT study from 02/14/2020. This mass has a benign appearance with a smooth, well-defined thin wall and low internal CT attenuation and is likely a Bosniak type I simple cyst. No further follow-up is recommended. Reference: Keya BR, Management of the Incidental Renal Mass on CT: A White Paper of the ACR Incidental Findings Committee, J [employer] [place] [employer] 2018. Stomach and bowel: Questionable mild acute enteritis. There is slightly excessive fluid and early fecalization of bowel contents present in the mid to distal small bowel, with moderate fecal loading throughout most of the large bowel suggestive of some degree of generalized bowel stasis/early ileus. No highly abnormal small bowel distension. The appendix appears normal posterior to the cecum on image 83 of series 201. No free intraperitoneal air or free fluid. The patient is status post gastric bypass surgery, with no obvious complication present. Appendix: See "Stomach and bowel" finding. Intraperitoneal space: See "Stomach and bowel" finding. Vasculature: Unremarkable. No abdominal aortic aneurysm. Lymph nodes: Unremarkable. No enlarged lymph nodes. Urinary bladder: Unremarkable as visualized. Reproductive: Unremarkable as visualized. Bones/joints: Moderate levoscoliosis of the lumbar spine, apex at L1/L2. Chronic degenerative discovertebral disease with loss of disc height, vacuum disc phenomenon and endplate osteophytosis at levels L4-S1. Soft tissues: Unremarkable. IMPRESSION: 1. Questionable mild acute enteritis. There is slightly excessive fluid and early fecalization of bowel contents present in the mid to distal small bowel, with moderate fecal loading throughout most of the large bowel suggestive of some degree of generalized bowel stasis/early ileus. No highly abnormal small bowel distension. The appendix appears normal posterior to the cecum on image 83 of series 201. No free intraperitoneal air or free fluid. 2. The patient is status post gastric bypass surgery, with no obvious complication present. 3. Mild diffuse fatty infiltration of the liver with a small area of focal fatty infiltrate adjacent to the ligamentum teres on image 33 of series 201 measuring 1.3 x 1.2 cm in size. A small 1.2 x 1.2 cm hypodense mass is present in the lateral segment left lobe of the liver on images 24 and 25 of series 201, stable and unchanged since the previous CT abdomen and pelvis study from 02/14/2020. This has the appearance of a benign cyst. 4. There is a small 11 mm diameter hypodense mass in the lower pole right kidney. The mass is unchanged since the previous CT study from 02/14/2020. This mass has a benign appearance with a smooth, well-defined thin wall and low internal CT attenuation and is likely a Bosniak type I simple cyst. No further follow-up is recommended. Reference: Keya JUARES, Management of the Incidental Renal Mass on CT: A White Paper of the ACR Incidental Findings Committee, J Am [place] [facility] 2018. COMMENTS: Consistent with the [employer]'s Incidental Findings Committee white paper (J Am [place] [employer] 2018): Any incidental renal lesion less than 1 cm or classified as too small to characterize, or any incidental cystic renal lesion characterized as simple-appearing, is likely benign. No follow-up imaging is recommended for these lesions per consensus recommendations based on imaging criteria. Electronically signed by: Sohail Irvin On 11/19/2020 18:17:45 PM
== END ==
LOC: M RAD 16:13
PROVIDERS: ATTEND Physician Assistant Medical
DX: D41.01 Neoplasm of uncertain behavior of right kidney (principal); K76.0 Fatty (change of) liver, not elsewhere classified; R10.12 Left upper quadrant pain; Y83.2 Surgical operation with anastomosis, bypass or graft as the cause of abnormal reaction of the patient, or of later complication, without mention of misadventure at the time of the procedure; K91.89 Other postprocedural complications and disorders of digestive system; Z98.84 Bariatric surgery status
CPT/HCPCS: 74177; Q9963; Q9967

== ENCOUNTER → 2020-11-19 | Outpatient (REF) | payer OTHER ==
[~2020-11-19] MED LIST changes: -GASTROGRAFIN SOLUTION 30ML (Q9963) As Ordered ONE; -ISOVUE-370 76% 100ML VIAL As Ordered ONE
[2020-11-19 18:25] LABS: BASO % 0.6 % (0.0-1.0); EOS # 0.2 10^3/uL (0.0-0.5); EOS % 2.7 % (0.0-3.0); HEMATOCRIT 40.4 % (36.0-47.0); HEMOGLOBIN 12.8 g/dl (12.0-15.5); LYMPH # 2.6 10^3/uL (1.5-5.0); LYMPH % 41.2 % (24.0-44.0); MEAN CORPUSCULAR HEMOGLOBIN 31.2 pg (27.0-33.0); MEAN CORPUSCULAR HGB CONC 31.7 g/dl (32.0-36.5); MEAN CORPUSCULAR VOLUME 98.5 fl (80.0-96.0); MONO # 0.4 10^3/uL (0.0-0.8); MONO % 6.7 % (2.0-8.0); NEUTROPHILS # 3.1 10^3/uL (1.5-8.5); NEUTROPHILS % 48.6 % (36.0-66.0); PLATELET COUNT, AUTOMATED 347 10^3/uL (150-450); WHITE BLOOD COUNT 6.3 10^3/uL (4.0-10.0)
[2020-11-19 18:47] LABS: ALBUMIN 3.4 GM/DL (3.2-5.2); ALT/SGPT 48 U/L (12-78); BILIRUBIN,TOTAL 0.6 MG/DL (0.2-1.0); BLOOD UREA NITROGEN 11 MG/DL (7-18); CARBON DIOXIDE LEVEL 29 MEQ/L (21-32); CHLORIDE LEVEL 109 MEQ/L (98-107); GLOMERULAR FILTRATION RATE > 60.0 (>51); GLUCOSE, FASTING 85 MG/DL (70-100); LIPASE 113 U/L (73-393); POTASSIUM SERUM 4.3 MEQ/L (3.5-5.1); SODIUM LEVEL 142 MEQ/L (136-145); TOTAL PROTEIN 6.2 GM/DL (6.4-8.2)
[2020-11-19 20:59] LABS: ERYTHROCYTE SEDIMENTATION RATE 25 mm/hr (0-30)
== END ==
LOC: M SFHCPLAZ 13:47
PROVIDERS: ATTEND Physician Assistant Medical
DX: R10.12 Left upper quadrant pain (principal)

== ENCOUNTER 2020-11-24 11:08 | Emergency (ER) | payer OTHER ==
[~2020-11-24] VITALS: Ht 167.6 cm; Wt 64.5 kg
[~2020-11-24 11:08] MED LIST changes: -SENN-52 PO
[2020-11-24 11:43] LABS: BASO % 0.7 % (0.0-1.0); EOS # 0.2 10^3/uL (0.0-0.5); EOS % 3.3 % (0.0-3.0); HEMATOCRIT 42.9 % (36.0-47.0); HEMOGLOBIN 13.9 g/dl (12.0-15.5); LYMPH # 2.2 10^3/uL (1.5-5.0); LYMPH % 36.2 % (24.0-44.0); MEAN CORPUSCULAR HEMOGLOBIN 31.6 pg (27.0-33.0); MEAN CORPUSCULAR HGB CONC 32.4 g/dl (32.0-36.5); MEAN CORPUSCULAR VOLUME 97.5 fl (80.0-96.0); MONO # 0.4 10^3/uL (0.0-0.8); NEUTROPHILS # 3.3 10^3/uL (1.5-8.5); NEUTROPHILS % 53.6 % (36.0-66.0); PLATELET COUNT, AUTOMATED 350 10^3/uL (150-450); WHITE BLOOD COUNT 6.1 10^3/uL (4.0-10.0)
[2020-11-24 12:14] LABS: ALBUMIN 3.9 GM/DL (3.2-5.2); ALT/SGPT 35 U/L (12-78); BILIRUBIN,DIRECT 0.2 MG/DL (0.0-0.2); BILIRUBIN,TOTAL 0.5 MG/DL (0.2-1.0); BLOOD UREA NITROGEN 9 MG/DL (7-18); CALCIUM LEVEL 9.3 MG/DL (8.5-10.1); CARBON DIOXIDE LEVEL 28 MEQ/L (21-32); CHLORIDE LEVEL 110 MEQ/L (98-107); CREATININE FOR GFR 0.75 MG/DL (0.55-1.30); GLOMERULAR FILTRATION RATE > 60.0 (>51); GLUCOSE, FASTING 80 MG/DL (70-100); LIPASE 81 U/L (73-393); SODIUM LEVEL 143 MEQ/L (136-145); TOTAL PROTEIN 6.7 GM/DL (6.4-8.2)
--- NOTE | 2020-11-24 12:51 | REP ---
INDICATION: abd pain ? bowel obstruction COMPARISON: None. TECHNIQUE: Upright view of the chest with supine and upright views of the abdomen and pelvis. FINDINGS: Frontal upright view of the chest demonstrates no acute cardiopulmonary process or free air below the diaphragm to suspect pneumoperitoneum. Supine and upright views of the abdomen and pelvis demonstrate nonspecific bowel gas pattern without obstruction or perforation. Oral contrast material identified throughout the small and large bowel. No organomegaly. No abnormal calcifications. Skeletal structures normal for age. IMPRESSION: Nonspecific bowel gas pattern. <Electronically signed by Cedric Fierro > 11/24/20 [id number]
[2020-11-24] MEDS ORDERED: LACTULOSE 20 GM/30 ML SYRUP UD PO ONE (14:05)
[2020-11-24] MEDS ORDERED: MIRALAX *UNIT DOSE* 17GM PACKET PO ONE (14:30)
[2020-11-24] MEDS ORDERED: SENN-52 PO (14:34)
[2020-11-24 14:50] VITALS: BP 151/85
== END 2020-11-24 15:23 | disposition home or self-care (01) ==
LOC: M ED 11:08
DX: K59.00 Constipation, unspecified (principal); K56.7 Ileus, unspecified; M51.9 Unspecified thoracic, thoracolumbar and lumbosacral intervertebral disc disorder; Z85.41 Personal history of malignant neoplasm of cervix uteri; Z79.899 Other long term (current) drug therapy; Z88.1 Allergy status to other antibiotic agents; Z91.018 Allergy to other foods; F17.210 Nicotine dependence, cigarettes, uncomplicated

== ENCOUNTER → 2021-01-06 | Outpatient (REF) | payer OTHER ==
[~2021-01-06] MED LIST changes: +SENN-52 PO
[2021-01-06 19:01] LABS: ALBUMIN 3.4 GM/DL (3.2-5.2); ALT/SGPT 49 U/L (12-78); BILIRUBIN,TOTAL 0.3 MG/DL (0.2-1.0); BLOOD UREA NITROGEN 13 MG/DL (7-18); CALCIUM LEVEL 8.5 MG/DL (8.5-10.1); CARBON DIOXIDE LEVEL 28 MEQ/L (21-32); CHLORIDE LEVEL 109 MEQ/L (98-107); CREATININE FOR GFR 0.58 MG/DL (0.55-1.30); FREE T4 0.97 NG/DL (0.76-1.46); GLOMERULAR FILTRATION RATE > 60.0 (>51); GLUCOSE, FASTING 85 MG/DL (70-100); POTASSIUM SERUM 4.4 MEQ/L (3.5-5.1); PTH INTACT 78.1 PG/ML (18.5-88.0); SODIUM LEVEL 142 MEQ/L (136-145); THYROID STIMULATING HORMONE 0.926 uIU/ML (0.358-3.740); TOTAL 25(OH) VITAMIN D 64.6 NG/ML (30.0-100.0); VITAMIN B12 LEVEL 303 PG/ML (247-911)
[2021-01-06 19:21] LABS: HEMOGLOBIN A1c 5.2 %
== END ==
LOC: M SFHCPLAZ 15:48
PROVIDERS: ATTEND Physician Assistant Medical
DX: E55.9 Vitamin D deficiency, unspecified (principal); E05.90 Thyrotoxicosis, unspecified without thyrotoxic crisis or storm; E53.8 Deficiency of other specified B group vitamins; R73.01 Impaired fasting glucose

== ENCOUNTER 2021-02-18 11:56 | Emergency (ER) | payer OTHER ==
[~2021-02-18] VITALS: Ht 167.6 cm; Wt 62.3 kg
--- NOTE | 2021-02-18 12:38 | REP ---
INDICATION: TRAUMA COMPARISON: None. TECHNIQUE: Axial and lateral views of the calcaneus. FINDINGS: No acute fracture or dislocation appreciated. Osseous structures, joint spaces, and surrounding soft tissues appear grossly normal. IMPRESSION: No acute fracture or dislocation. <Electronically signed by Cedric Fierro > 02/18/21 [id number]
--- NOTE | 2021-02-18 12:38 | REP ---
INDICATION: fall, injury, swelling COMPARISON: None. TECHNIQUE: AP, lateral, bilateral oblique views left foot. FINDINGS: Osteopenia and age-related degenerative changes are appreciated. Focal arthritic change at the 1st metatarsophalangeal joint includes periarticular sclerosis with joint space narrowing and very early marginal spurring. No evidence for acute fracture or dislocation. No subcutaneous emphysema or foreign body. IMPRESSION: Degenerative changes. No acute fracture or dislocation appreciated. <Electronically signed by Cedric Fierro > 02/18/21 [id number]
--- NOTE | 2021-02-18 12:39 | REP ---
INDICATION: TRAUMA COMPARISON: None. TECHNIQUE: AP and lateral views of the left tibia/fibula. FINDINGS: The osseous structures and joint spaces are intact and normal. There is no evidence for acute fracture or dislocation. Surrounding soft tissues are unremarkable. No subcutaneous emphysema or radiodense foreign body. IMPRESSION: . No acute fracture or dislocation. <Electronically signed by Cedric Fierro > 02/18/21 [id number]
[2021-02-18] MEDS ORDERED: ACETAMINOPHEN 500 MG TAB PO ONE (13:20)
--- NOTE | 2021-02-18 13:38 | REP ---
INDICATION: fall COMPARISON: None. TECHNIQUE: AP, lateral, bilateral oblique views. FINDINGS: Age-related degenerative changes. No acute fracture or dislocation. Ankle mortise intact. IMPRESSION: Degenerative changes. No acute fracture or dislocation. <Electronically signed by Cedric Fierro > 02/18/21 [id number]
[2021-02-18 14:25] VITALS: BP 132/83
== END 2021-02-18 14:30 | disposition home or self-care (01) ==
LOC: M ED 11:56
DX: S93.602A Unspecified sprain of left foot, initial encounter (principal); S90.32XA Contusion of left foot, initial encounter; M19.072 Primary osteoarthritis, left ankle and foot; X58.XXXA Exposure to other specified factors, initial encounter; Y92.89 Other specified places as the place of occurrence of the external cause; Y93.89 Activity, other specified; Y99.0 Civilian activity done for income or pay; Z87.81 Personal history of (healed) traumatic fracture; E78.5 Hyperlipidemia, unspecified; G89.29 Other chronic pain; M54.9 Dorsalgia, unspecified; K21.9 Gastro-esophageal reflux disease without esophagitis; Z98.84 Bariatric surgery status; F17.200 Nicotine dependence, unspecified, uncomplicated; Z79.899 Other long term (current) drug therapy; Z91.018 Allergy to other foods; Z88.1 Allergy status to other antibiotic agents

== ENCOUNTER → 2021-02-27 | Outpatient (CLI) | payer OTHER ==
[2021-02-27 14:01] LABS: PERCENT SATURATION 26.5 % (13.2-45.0)
[2021-02-27 14:08] LABS: FOLATE 10.8 NG/ML (>5.4); TOTAL 25(OH) VITAMIN D 69.3 NG/ML (30.0-100.0)
== END ==
LOC: M LAB 12:47
PROVIDERS: ATTEND Registered Nurse
DX: E55.9 Vitamin D deficiency, unspecified (principal); D51.9 Vitamin B12 deficiency anemia, unspecified; E51.9 Thiamine deficiency, unspecified

== ENCOUNTER → 2021-07-01 | Outpatient (CLI) | payer OTHER ==
--- NOTE | 2021-07-01 12:59 | REP ---
INDICATION: UNSPECIFIED ABDOMINAL PAIN COMPARISON: None. TECHNIQUE: Frontal view of the chest with multiple views of the right hemithorax. Five total views. FINDINGS: Frontal view of the chest demonstrates no acute cardiopulmonary process, contusion, effusion, or pneumothorax. Multiple views of the right hemithorax demonstrates no acute rib fracture/injury or pathology. IMPRESSION: Normal rib series. <Electronically signed by Cedric Fierro > 07/01/21 [id number]
[2021-07-01 14:28] LABS: RSV AMPLIFICATION NEGATIVE (NEGATIVE)
[2021-07-01 14:39] LABS: BASO % 0.6 % (0.0-1.0); EOS # 0.1 10^3/uL (0.0-0.5); EOS % 2.2 % (0.0-3.0); HEMATOCRIT 40.9 % (36.0-47.0); HEMOGLOBIN 13.6 g/dl (12.0-15.5); LYMPH % 31.5 % (24.0-44.0); MEAN CORPUSCULAR HEMOGLOBIN 32.8 pg (27.0-33.0); MEAN CORPUSCULAR HGB CONC 33.3 g/dl (32.0-36.5); MEAN CORPUSCULAR VOLUME 98.6 fl (80.0-96.0); MONO # 0.5 10^3/uL (0.0-0.8); MONO % 7.3 % (2.0-8.0); NEUTROPHILS # 3.8 10^3/uL (1.5-8.5); NEUTROPHILS % 58.1 % (36.0-66.0); PLATELET COUNT, AUTOMATED 285 10^3/uL (150-450); RED BLOOD COUNT 4.15 10^6/uL (4.00-5.40); WHITE BLOOD COUNT 6.5 10^3/uL (4.0-10.0)
[2021-07-01 16:34] LABS: ALBUMIN 3.3 GM/DL (3.2-5.2); ALT/SGPT 77 U/L (12-78); BILIRUBIN,TOTAL 0.4 MG/DL (0.2-1.0); BLOOD UREA NITROGEN 13 MG/DL (7-18); CALCIUM LEVEL 8.9 MG/DL (8.5-10.1); CARBON DIOXIDE LEVEL 29 MEQ/L (21-32); CHLORIDE LEVEL 109 MEQ/L (98-107); CREATININE FOR GFR 0.68 MG/DL (0.55-1.30); GLOMERULAR FILTRATION RATE > 60.0 (>51); GLUCOSE, FASTING 85 MG/DL (70-100); SODIUM LEVEL 142 MEQ/L (136-145); TOTAL PROTEIN 6.1 GM/DL (6.4-8.2)
== END ==
LOC: M PLAIMG 12:00
PROVIDERS: ATTEND Nurse Practitioner Family
DX: R10.9 Unspecified abdominal pain (principal); R09.81 Nasal congestion

== ENCOUNTER → 2021-08-31 | Outpatient (CLI) | payer OTHER ==
--- NOTE | 2021-08-31 09:30 | REP ---
INDICATION: CALCULUS OF KIDNEY COMPARISON: 11/24/2020 TECHNIQUE: Supine view of the abdomen and pelvis. FINDINGS: Evaluation is significantly limited due to bowel gas pattern and suspected moderate fecal stasis. Small nonobstructing left renal calculi cannot be excluded. IMPRESSION: Limited examination. Cannot exclude nonobstructing left renal calculi. <Electronically signed by Cedric Fierro > 08/31/21 [id number]
[2021-08-31 13:39] LABS: APPEARANCE, URINE CLOUDY (CLEAR); BACTERIA, URINE AUTO NEGATIVE (NEGATIVE); BILIRUBIN, URINE AUTO NEGATIVE (NEGATIVE); BLOOD, URINE BLOOD 1+ (NEGATIVE); CALCIUM OXALATE CRYSTALS LARGE; COLOR, URINE YELLOW (YELLOW); GLUCOSE, URINE (UA) AUTO NEGATIVE (NEGATIVE); KETONE, URINE AUTO NEGATIVE (NEGATIVE); LEUKOCYTE ESTERASE, URINE AUTO TRACE (NEGATIVE); MUCUS, URINE SMALL (NEGATIVE); NITRITE, URINE AUTO NEGATIVE (NEGATIVE); PROTEIN, URINE AUTO NEGATIVE (NEGATIVE); RBC, URINE AUTO 35 /HPF (0-3); SPECIFIC GRAVITY URINE AUTO 1.017 (1.002-1.035); SQUAMOUS EPITHELIAL CELL UR AU 6 /HPF (0-6); WBC, URINE AUTO 4 /HPF (0-3)
== END ==
LOC: M PLALAB 09:08
PROVIDERS: ATTEND Nurse Practitioner Women's Health
DX: N20.0 Calculus of kidney (principal)

== ENCOUNTER → 2021-08-31 | Outpatient (CLI) | payer OTHER ==
[2021-08-31 10:25] LABS: BASO # 0.1 10^3/uL (0.0-0.2); EOS # 0.2 10^3/uL (0.0-0.5); HEMATOCRIT 42.6 % (36.0-47.0); HEMOGLOBIN 13.9 g/dl (12.0-15.5); LYMPH # 1.9 10^3/uL (1.5-5.0); MEAN CORPUSCULAR HEMOGLOBIN 32.1 pg (27.0-33.0); MEAN CORPUSCULAR HGB CONC 32.6 g/dl (32.0-36.5); MEAN CORPUSCULAR VOLUME 98.4 fl (80.0-96.0); MONO # 0.4 10^3/uL (0.0-0.8); NEUTROPHILS # 2.5 10^3/uL (1.5-8.5); NEUTROPHILS % 50.8 % (36.0-66.0); PLATELET COUNT, AUTOMATED 272 10^3/uL (150-450); RED BLOOD COUNT 4.33 10^6/uL (4.00-5.40)
[2021-08-31 11:19] LABS: ALBUMIN 3.4 GM/DL (3.2-5.2); ALT/SGPT 67 U/L (12-78); BILIRUBIN,TOTAL 0.4 MG/DL (0.2-1.0); BLOOD UREA NITROGEN 15 MG/DL (7-18); CALCIUM LEVEL 9.2 MG/DL (8.5-10.1); CARBON DIOXIDE LEVEL 27 MEQ/L (21-32); CHLORIDE LEVEL 111 MEQ/L (98-107); CREATININE FOR GFR 0.64 MG/DL (0.55-1.30); GLOMERULAR FILTRATION RATE > 60.0 (>51); GLUCOSE, FASTING 88 MG/DL (70-100); POTASSIUM SERUM 4.6 MEQ/L (3.5-5.1); SODIUM LEVEL 143 MEQ/L (136-145); TOTAL PROTEIN 6.2 GM/DL (6.4-8.2)
== END ==
LOC: M PLALAB 09:06
PROVIDERS: ATTEND Nurse Practitioner Family
DX: R10.9 Unspecified abdominal pain (principal)

== ENCOUNTER → 2021-11-23 | Outpatient (CLI) | payer OTHER ==
[~2021-11-23] MED LIST changes: -MONT10TA10 PO; +MONT10TA97 PO; -OMEP-221 PO; +OMEP40CA5 PO
== END ==
LOC: M PLAIMG 10:42
PROVIDERS: ATTEND Physician Assistant Surgical
DX: S60.212A Contusion of left wrist, initial encounter (principal)

== ENCOUNTER → 2021-12-03 | Outpatient (REF) | payer OTHER | LOC: M SFHCPLAZ 14:59 | PROVIDERS: ATTEND Physician Assistant | DX: R51.9 Headache, unspecified (principal) | CPT/HCPCS: 87633; U0003 ==

== ENCOUNTER → 2021-12-03 | Outpatient (CLI) | payer OTHER ==
[2021-12-03 15:21] LABS: BASO # 0.1 10^3/uL (0.0-0.2); EOS # 0.2 10^3/uL (0.0-0.5); EOS % 2.6 % (0.0-3.0); HEMOGLOBIN 13.8 g/dl (12.0-15.5); LYMPH # 2.2 10^3/uL (1.5-5.0); LYMPH % 35.7 % (24.0-44.0); MEAN CORPUSCULAR HEMOGLOBIN 31.9 pg (27.0-33.0); MEAN CORPUSCULAR HGB CONC 32.9 g/dl (32.0-36.5); MEAN CORPUSCULAR VOLUME 97.2 fl (80.0-96.0); MONO # 0.3 10^3/uL (0.0-0.8); MONO % 5.1 % (2.0-8.0); NEUTROPHILS # 3.4 10^3/uL (1.5-8.5); NEUTROPHILS % 55.4 % (36.0-66.0); PLATELET COUNT, AUTOMATED 283 10^3/uL (150-450); RED BLOOD COUNT 4.32 10^6/uL (4.00-5.40); WHITE BLOOD COUNT 6.1 10^3/uL (4.0-10.0)
[2021-12-03 15:47] LABS: ALBUMIN 3.5 GM/DL (3.2-5.2); ALT/SGPT 90 U/L (12-78); BILIRUBIN,TOTAL 0.4 MG/DL (0.2-1.0); BLOOD UREA NITROGEN 13 MG/DL (7-18); CALCIUM LEVEL 8.9 MG/DL (8.5-10.1); CARBON DIOXIDE LEVEL 32 MEQ/L (21-32); CHLORIDE LEVEL 109 MEQ/L (98-107); CREATININE FOR GFR 0.76 MG/DL (0.55-1.30); GLOMERULAR FILTRATION RATE > 60.0 (>51); GLUCOSE, FASTING 86 MG/DL (70-100); POTASSIUM SERUM 4.1 MEQ/L (3.5-5.1); SODIUM LEVEL 142 MEQ/L (136-145); TOTAL PROTEIN 6.1 GM/DL (6.4-8.2)
== END ==
LOC: M PLALAB 13:17
PROVIDERS: ATTEND Physician Assistant Medical
DX: R10.84 Generalized abdominal pain (principal); R51.9 Headache, unspecified; R42 Dizziness and giddiness

== ENCOUNTER → 2022-01-06 | Outpatient (CLI) | payer OTHER | LOC: M PLAIMG 08:13 | PROVIDERS: ATTEND Nurse Practitioner Women's Health | DX: N20.0 Calculus of kidney (principal); M16.12 Unilateral primary osteoarthritis, left hip ==

== ENCOUNTER → 2022-03-31 | Outpatient (REF) | payer OTHER | LOC: M LAB REF 16:13 | PROVIDERS: ATTEND Physician Assistant | DX: R50.9 Fever, unspecified (principal) ==

== ENCOUNTER → 2022-04-15 | Outpatient (CLI) | payer OTHER ==
[2022-04-15 18:21] LABS: ALBUMIN 2.9 GM/DL (3.2-5.2); ALT/SGPT 66 U/L (12-78); BILIRUBIN,TOTAL 0.3 MG/DL (0.2-1.0); BLOOD UREA NITROGEN 9 MG/DL (7-18); CALCIUM LEVEL 8.4 MG/DL (8.5-10.1); CARBON DIOXIDE LEVEL 28 MEQ/L (21-32); CHLORIDE LEVEL 112 MEQ/L (98-107); CHOLESTEROL LEVEL 101 MG/DL (<200); CHOLESTEROL RISK RATIO 2.463 (<5); CREATININE FOR GFR 0.92 MG/DL (0.55-1.30); FREE T4 0.97 NG/DL (0.76-1.46); GLOMERULAR FILTRATION RATE > 60.0 (>51); GLUCOSE, FASTING 95 MG/DL (70-100); HDL CHOLESTEROL 41 MG/DL (>40); LDL CHOLESTEROL 46 MG/DL (<100); NON-HDL-C 60 MG/DL; POTASSIUM SERUM 4.3 MEQ/L (3.5-5.1); SODIUM LEVEL 144 MEQ/L (136-145); TOTAL PROTEIN 6.2 GM/DL (6.4-8.2); TRIGLYCERIDES LEVEL 70 MG/DL (<150)
[2022-04-15 18:37] LABS: IRON (FE) 75 UG/DL (50-170)
[2022-04-15 20:56] LABS: HEMOGLOBIN A1c 5.5 %
[2022-04-15 22:33] LABS: TOTAL 25(OH) VITAMIN D 68.9 NG/ML (30.0-100.0)
[2022-04-16 00:45] LABS: FERRITIN 340 NG/ML (8-252)
[2022-04-16 12:04] LABS: VITAMIN B12 LEVEL 942 PG/ML (247-911)
== END ==
LOC: M PLALAB 12:37
PROVIDERS: ATTEND Physician Assistant
DX: K91.89 Other postprocedural complications and disorders of digestive system (principal); F41.9 Anxiety disorder, unspecified; E78.2 Mixed hyperlipidemia; Z98.84 Bariatric surgery status; R79.89 Other specified abnormal findings of blood chemistry

== ENCOUNTER → 2022-04-15 | Outpatient (CLI) | payer OTHER ==
[2022-04-15 15:55] LABS: BASO # 0.1 10^3/uL (0.0-0.2); BASO % 1.3 % (0.0-1.0); EOS # 0.2 10^3/uL (0.0-0.5); EOS % 3.2 % (0.0-3.0); HEMATOCRIT 39.4 % (36.0-47.0); HEMOGLOBIN 12.5 g/dl (12.0-15.5); LYMPH # 2.2 10^3/uL (1.5-5.0); LYMPH % 35.4 % (24.0-44.0); MEAN CORPUSCULAR HEMOGLOBIN 32.1 pg (27.0-33.0); MEAN CORPUSCULAR HGB CONC 31.7 g/dl (32.0-36.5); MEAN CORPUSCULAR VOLUME 101.3 fl (80.0-96.0); MONO # 0.4 10^3/uL (0.0-0.8); MONO % 6.6 % (2.0-8.0); NEUTROPHILS # 3.4 10^3/uL (1.5-8.5); NEUTROPHILS % 53.2 % (36.0-66.0); PLATELET COUNT, AUTOMATED 556 10^3/uL (150-450); RED BLOOD COUNT 3.89 10^6/uL (4.00-5.40); WHITE BLOOD COUNT 6.3 10^3/uL (4.0-10.0)
[2022-04-15 16:18] LABS: ALT/SGPT 62 U/L (12-78); BILIRUBIN,DIRECT < 0.1 MG/DL (0.0-0.2); BILIRUBIN,TOTAL 0.3 MG/DL (0.2-1.0); BLOOD UREA NITROGEN 10 MG/DL (7-18); CALCIUM LEVEL 8.8 MG/DL (8.5-10.1); CARBON DIOXIDE LEVEL 26 MEQ/L (21-32); CHLORIDE LEVEL 115 MEQ/L (98-107); CREATININE FOR GFR 0.85 MG/DL (0.55-1.30); GLOMERULAR FILTRATION RATE > 60.0 (>51); GLUCOSE, FASTING 86 MG/DL (70-100); POTASSIUM SERUM 4.5 MEQ/L (3.5-5.1); SODIUM LEVEL 146 MEQ/L (136-145); TOTAL PROTEIN 6.1 GM/DL (6.4-8.2)
== END ==
LOC: M PLALAB 13:38
PROVIDERS: ATTEND Physician Assistant Medical
DX: N12 Tubulo-interstitial nephritis, not specified as acute or chronic (principal); R79.89 Other specified abnormal findings of blood chemistry

== ENCOUNTER → 2022-04-15 | Outpatient (CLI) | payer OTHER ==
[2022-04-15 18:12] LABS: ALBUMIN 2.8 GM/DL (3.2-5.2); BILIRUBIN,DIRECT 0.1 MG/DL (0.0-0.2); BILIRUBIN,TOTAL 0.3 MG/DL (0.2-1.0); TOTAL PROTEIN 5.9 GM/DL (6.4-8.2)
== END ==
LOC: M PLALAB 12:47
PROVIDERS: ATTEND Physician Assistant
DX: R79.89 Other specified abnormal findings of blood chemistry (principal)

== ENCOUNTER → 2022-05-05 | Outpatient (CLI) | payer OTHER ==
[2022-05-05 16:30] LABS: BASO # 0.1 10^3/uL (0.0-0.2); BASO % 0.9 % (0.0-1.0); EOS # 0.2 10^3/uL (0.0-0.5); EOS % 3.3 % (0.0-3.0); HEMATOCRIT 40.2 % (36.0-47.0); HEMOGLOBIN 13.1 g/dl (12.0-15.5); LYMPH # 2.7 10^3/uL (1.5-5.0); LYMPH % 39.3 % (24.0-44.0); MEAN CORPUSCULAR HEMOGLOBIN 32.1 pg (27.0-33.0); MEAN CORPUSCULAR HGB CONC 32.6 g/dl (32.0-36.5); MEAN CORPUSCULAR VOLUME 98.5 fl (80.0-96.0); MONO # 0.5 10^3/uL (0.0-0.8); MONO % 7.5 % (2.0-8.0); NEUTROPHILS # 3.4 10^3/uL (1.5-8.5); NEUTROPHILS % 48.9 % (36.0-66.0); PLATELET COUNT, AUTOMATED 303 10^3/uL (150-450); RED BLOOD COUNT 4.08 10^6/uL (4.00-5.40); WHITE BLOOD COUNT 6.9 10^3/uL (4.0-10.0)
[2022-05-05 17:07] LABS: ALBUMIN 3.3 GM/DL (3.2-5.2); ALT/SGPT 41 U/L (12-78); BILIRUBIN,TOTAL 0.3 MG/DL (0.2-1.0); BLOOD UREA NITROGEN 13 MG/DL (7-18); CALCIUM LEVEL 8.6 MG/DL (8.5-10.1); CARBON DIOXIDE LEVEL 27 MEQ/L (21-32); CHLORIDE LEVEL 110 MEQ/L (98-107); CREATININE FOR GFR 0.71 MG/DL (0.55-1.30); GLOMERULAR FILTRATION RATE > 60.0 (>51); GLUCOSE, FASTING 70 MG/DL (70-100); POTASSIUM SERUM 4.4 MEQ/L (3.5-5.1); SODIUM LEVEL 139 MEQ/L (136-145); TOTAL PROTEIN 6.3 GM/DL (6.4-8.2)
== END ==
LOC: M LAB 15:55
PROVIDERS: ATTEND Physician Assistant Medical
DX: R10.9 Unspecified abdominal pain (principal)

== ENCOUNTER → 2022-05-05 | Outpatient (REF) | payer OTHER ==
[2022-05-05 14:12] LABS: APPEARANCE, URINE MANUAL CLEAR (CLEAR); BILIRUBIN, URINE MANUAL NEGATIVE (NEGATIVE); BLOOD URINE MANUAL NEGATIVE (NEGATIVE); COLOR, URINE MANUAL LT YELLOW (YELLOW); GLUCOSE, URINE (UA) MANUAL NEGATIVE (NEGATIVE); KETONE, URINE MANUAL NEGATIVE (NEGATIVE); LEUKOCYTE ESTERASE, URINE MAN NEGATIVE (NEGATIVE); NITRITE, URINE MANUAL NEGATIVE (NEGATIVE); PROTEIN, URINE MANUAL NEGATIVE (NEGATIVE); UROBILINOGEN, URINE MANUAL NORMAL (NORMAL)
== END ==
LOC: M SFHCPLAZ 12:58
PROVIDERS: ATTEND Physician Assistant Medical
DX: R35.0 Frequency of micturition (principal)

== ENCOUNTER → 2022-05-13 | Outpatient (CLI) | payer OTHER ==
[2022-05-13 18:21] LABS: APPEARANCE, URINE MANUAL CLEAR (CLEAR); COLOR, URINE MANUAL YELLOW (YELLOW)
[2022-05-13 18:22] LABS: BILIRUBIN, URINE MANUAL NEGATIVE (NEGATIVE); BLOOD URINE MANUAL POSITIVE (NEGATIVE); GLUCOSE, URINE (UA) MANUAL NEGATIVE (NEGATIVE); KETONE, URINE MANUAL NEGATIVE (NEGATIVE); LEUKOCYTE ESTERASE, URINE MAN TRACE (NEGATIVE); NITRITE, URINE MANUAL NEGATIVE (NEGATIVE); PROTEIN, URINE MANUAL NEGATIVE (NEGATIVE); SPECIFIC GRAVITY,URINE MANUAL 1.015 (1.002-1.035); UROBILINOGEN, URINE MANUAL NORMAL (NORMAL)
[2022-05-13 18:50] LABS: BACTERIA, URINE SMALL AMOUNT; HYALINE CAST, URINE NONE SEEN /lpf (0-1); MUCUS, URINE SMALL AMOUNT (NEGATIVE); SQUAMOUS EPITHELIAL CELL URINE MOD AMOUNT /hpf (SMALL AMT)
== END ==
LOC: M PLAIMG 15:36
PROVIDERS: ATTEND Urology
DX: N20.0 Calculus of kidney (principal)

== ENCOUNTER → 2022-07-29 | Outpatient (REF) | payer OTHER ==
[2022-07-29 14:36] LABS: APPEARANCE, URINE MANUAL CLOUDY (CLEAR); COLOR, URINE MANUAL AMBER (YELLOW)
[2022-07-29 14:39] LABS: BILIRUBIN, URINE MANUAL NEGATIVE (NEGATIVE); BLOOD URINE MANUAL POSITIVE (NEGATIVE); GLUCOSE, URINE (UA) MANUAL NEGATIVE (NEGATIVE); KETONE, URINE MANUAL NEGATIVE (NEGATIVE); LEUKOCYTE ESTERASE, URINE MAN POSITIVE (NEGATIVE); NITRITE, URINE MANUAL NEGATIVE (NEGATIVE); PROTEIN, URINE MANUAL 2+ mg/dL (NEGATIVE); SPECIFIC GRAVITY,URINE MANUAL 1.005 (1.002-1.035); UROBILINOGEN, URINE MANUAL NORMAL (NORMAL)
[2022-07-29 15:05] LABS: RBC, URINE TNTC /hpf (0-3); SQUAMOUS EPITHELIAL CELL URINE NONE SEEN /hpf (SMALL AMT); WBC, URINE TNTC /hpf (0-3)
[2022-07-29 15:06] LABS: BACTERIA, URINE SMALL AMOUNT; CALCIUM OXALATE CRYSTALS,URINE SMALL AMOUNT /hpf; HYALINE CAST, URINE NONE SEEN /lpf (0-1)
== END ==
LOC: M SMT 13:12
PROVIDERS: ATTEND Physician Assistant
DX: N23 Unspecified renal colic (principal)

== ENCOUNTER → 2022-07-30 | Outpatient (CLI) | payer OTHER | LOC: M RAD 14:25 | PROVIDERS: ATTEND Physician Assistant | DX: N23 Unspecified renal colic (principal); N20.0 Calculus of kidney ==

== ENCOUNTER → 2022-09-29 | Outpatient (CLI) | payer OTHER ==
[~2022-09-29] MED LIST changes: +BENA25CA4 PO; +CELE20TA PO; +D3-5CAP PO; +LIPI20TA PO; +LORA1TAB4 PO
[2022-09-29 15:21] VITALS: BP 170/100
== END ==
LOC: M WHCPRO 13:53
PROVIDERS: ATTEND Surgery
DX: C50.411 Malignant neoplasm of upper-outer quadrant of right female breast (principal)
CPT/HCPCS: 10035; 77065; A4648

== ENCOUNTER → 2022-10-01 | Outpatient (CLI) | payer OTHER ==
[~2022-10-01] MED LIST changes: +DEXA4TA PO; +METH-1164; +NICO14DI6; +TRAM50TA2
== END ==
LOC: M PLAIMG 09:28
PROVIDERS: ATTEND Physician Assistant Medical
DX: R07.81 Pleurodynia (principal)

== ENCOUNTER → 2022-10-14 | Outpatient (CLI) | payer OTHER | LOC: M LABSMTC 09:28 | PROVIDERS: ATTEND Anesthesiology | DX: Z11.52 Encounter for screening for COVID-19 (principal) ==

== ENCOUNTER → 2022-10-18 | Outpatient (CLI) | payer OTHER ==
[~2022-10-18] MED LIST changes: +EPIP0.3I2 IM; +LIDO15SO4 PO; +LIDO1CRE42 TOP; +ONDA-84 PO; +PRED5TA PO; +PROC10TA5 PO; +[UNRECOGNIZED DRUG - CODE] XX; +shower chair
== END ==
LOC: M CARPUL 13:30
PROVIDERS: ATTEND Specialist
DX: I42.7 Cardiomyopathy due to drug and external agent (principal)

== ENCOUNTER → 2022-10-18 | Outpatient (CLI) | payer OTHER ==
[~2022-10-18] VITALS: Ht 167.6 cm; Wt 66.7 kg
[~2022-10-18] MED LIST changes: -EPIP0.3I2 IM; -LIDO15SO4 PO; +LIDOCAINE 1% MDV 20ML VIAL As Ordered ONE; +MIDAZOLAM INJ 2MG/2ML VIAL As Ordered ONE; +NS 1,000 ML IV SCH; -PRED5TA PO; +PROMETHAZINE 25MG/ML 1ML VIAL As Ordered ONE; -[UNRECOGNIZED DRUG - CODE] XX; +ceFAZolin 2 GM/D5W 50 ML IV BAG As Ordered ONE; +ceFAZolin SOD 2 GM in IV 1 EA IV ONE; +diphenhydrAMINE 50MG/ML VIAL As Ordered ONE; +fentaNYL 100 MCG/2 ML INJECTION As Ordered ONE; -shower chair
[2022-10-18 12:06] VITALS: BP 142/83
== END ==
LOC: M IRPRO 06:57
PROVIDERS: ATTEND Specialist
DX: C50.411 Malignant neoplasm of upper-outer quadrant of right female breast (principal)
CPT/HCPCS: 36561; 99152; 99153; C1769; C1788; C1894; J0690; J1200; J1642; J1644; J2250; J2550; J3010

== ENCOUNTER → 2022-12-08 | Outpatient (CLI) | payer OTHER ==
[~2022-12-08] MED LIST changes: +EPIP0.3I2 IM; +LIDO15SO4 PO; -LIDOCAINE 1% MDV 20ML VIAL As Ordered ONE; +METR0.7526 TOP; +METR0.7526 VG; -MIDAZOLAM INJ 2MG/2ML VIAL As Ordered ONE; -NS 1,000 ML IV SCH; +PRED5TA PO; -PROMETHAZINE 25MG/ML 1ML VIAL As Ordered ONE; +[UNRECOGNIZED DRUG - CODE] XX; -ceFAZolin 2 GM/D5W 50 ML IV BAG As Ordered ONE; -ceFAZolin SOD 2 GM in IV 1 EA IV ONE; -diphenhydrAMINE 50MG/ML VIAL As Ordered ONE; -fentaNYL 100 MCG/2 ML INJECTION As Ordered ONE; +shower chair
== END ==
LOC: M LAB 13:54
PROVIDERS: ATTEND Specialist
DX: T82.594A Other mechanical complication of infusion catheter, initial encounter (principal)

== ENCOUNTER → 2022-12-28 | Outpatient (POV) | payer OTHER ==
[~2022-12-28] VITALS: Ht 167.6 cm; Wt 64.0 kg
[~2022-12-28] MED LIST changes: +LIDO15SO PO; -LIDO15SO4 PO
[2022-12-28 09:45] VITALS: BP 122/86
== END ==
LOC: M IRPOV 09:36
PROVIDERS: ATTEND Radiology Diagnostic Radiology
DX: Z45.2 Encounter for adjustment and management of vascular access device (principal); Z88.1 Allergy status to other antibiotic agents; Z91.018 Allergy to other foods

== ENCOUNTER → 2022-12-31 | Outpatient (CLI) | payer OTHER | LOC: M PLAIMG 08:46 | PROVIDERS: ATTEND Urology | DX: N20.0 Calculus of kidney (principal) ==

== ENCOUNTER 2023-01-28 09:30 | Inpatient (IN) | payer OTHER ==
[~2023-01-28] VITALS: Ht 167.6 cm; Wt 62.8 kg
[~2023-01-28 09:30] MED LIST changes: +LOMO2.5T PO; +LORA1TAB23 PO; -LORA1TAB4 PO; -METH-1164; +METH-1164 PO
[2023-01-28] MEDS ORDERED: NS 1,740 ML in IV 1 EA IV ONE (11:40)
[2023-01-28] MEDS ORDERED: EMLA CREAM 5GM TUBE (LIDOCAINE/PRILOCAINE) TOP ONE (11:45)
[2023-01-28 12:14] LABS: VENOUS BASE EXCESS -2.4 (-2.0-2.0); VENOUS HCO3 21.6 MMOL/L (23.0-27.0); VENOUS O2 SATURATION 85.9 % (60.0-80.0); VENOUS PARTIAL PRESSURE CO2 34.5 mmHg (38.0-50.0); VENOUS PARTIAL PRESSURE O2 54.2 mmHg (30.0-50.0); VENOUS PH 7.415 UNITS (7.330-7.430); VENOUS STANDARD HCO3 22.3 MMOL/L; VENOUS TOTAL CO2 22.7 MMOL/L (24.0-28.0)
[2023-01-28 12:20] LABS: MEAN CORPUSCULAR HGB CONC 34.5 g/dl (32.0-36.5); MEAN CORPUSCULAR VOLUME 107.4 fl (80.0-96.0); PLATELET COUNT, AUTOMATED 134 10^3/uL (150-450); WHITE BLOOD COUNT 11.9 10^3/uL (4.0-10.0)
[2023-01-28 12:36] LABS: INR 1.03; PROTHROMBIN TIME 13.7 SECONDS (12.5-14.5)
[2023-01-28 12:37] LABS: PARTIAL THROMBOPLASTIN TIME 29.2 SECONDS (24.8-34.2)
[2023-01-28 12:45] LABS: CK-MB VALUE MASS < 1.0 NG/ML (<3.6)
[2023-01-28 12:47] LABS: BLOOD UREA NITROGEN 18 MG/DL (9-23); CALCIUM LEVEL 8.4 MG/DL (8.5-10.1); CARBON DIOXIDE LEVEL 25 MMOL/L (20-31); CHLORIDE LEVEL 103 MMOL/L (98-107); CPK CREATINE PHOSPHOKINASE 18 U/L (34-145); CREATININE FOR GFR 0.91 MG/DL (0.55-1.30); GLOMERULAR FILTRATION RATE > 60.0 (>51); GLUCOSE, FASTING 67 MG/DL (60-100); MAGNESIUM LEVEL 1.4 MG/DL (1.8-2.4); MB/CK RELATIVE INDEX 5.55 (< OR =4); POTASSIUM SERUM 3.4 MMOL/L (3.5-5.1); SODIUM LEVEL 138 MMOL/L (136-145)
[2023-01-28 12:49] LABS: THYROID STIMULATING HORMONE 0.895 uIU/ML (0.55-4.78)
[2023-01-28 13:21] LABS: EOSINOPHILS 1 % (0-3); LYMPHOCYTES 12 % (16-44); METAMYELOCYTES 1 % (0-0); MONOCYTES 12 % (0-5); NEUTROPHILS 69 % (28-66)
[2023-01-28 13:22] LABS: ANISOCYTOSIS 2+
[2023-01-28 13:23] LABS: PLATELET ESTIMATE NORMAL (NORMAL)
[2023-01-28] MEDS ORDERED: CHOL125C6 PO (14:58)
[2023-01-28] MEDS ORDERED: HOME MED LIST COMPLETE! XX SCH (15:00)
[2023-01-28] MEDS: NS 1,000 ML IV SCH ×2 (15:44→22:05)
[2023-01-28] MEDS: MAG SULF 1GM/100ML (MAG RUN) 1 GM in IV 1 EA IV SCH ×4 (15:44→19:36)
[2023-01-28] MEDS ORDERED: POTASSIUM CHLORIDE 10MEQ SR TABLET PO ONE (16:00)
[2023-01-28] MEDS ORDERED: ONDANSETRON 4MG TAB PO PRN (16:20)
[2023-01-28 16:25] VITALS: BP 118/70
[2023-01-28] MEDS: KCL 10MEQ/100ML SWI (KRUN) 10 MEQ in IV 1 EA IV SCH ×2 (16:50→18:00)
[2023-01-28 17:30] VITALS: BP 118/70
[2023-01-28 17:31] VITALS: BP 123/81
[2023-01-28 17:32] VITALS: BP 92/64
[2023-01-28] MEDS: LACTOBACILLUS ACIDOPHILUS CAP (BACID) PO SCH (17:42)
[2023-01-28] MEDS ORDERED: LOPERAMIDE 2 MG CAPLET PO PRN (17:55)
[2023-01-28 20:00] VITALS: BP 118/66
[2023-01-28] MEDS ORDERED: CEFDINIR 300 MG CAP (OMNICEF) PO SCH (21:00)
[2023-01-28] MEDS: GABAPENTIN 100 MG CAP PO SCH (21:15)
[2023-01-28] MEDS: diphenhydrAMINE 25MG CAP PO PRN (21:30)
[2023-01-29] VITALS (7 sets, daily range): BP systolic 83–121; BP diastolic 59–73
[2023-01-29] MEDS: NS 1,000 ML IV SCH ×3 (07:42→21:49)
[2023-01-29] MEDS: diphenhydrAMINE 25MG CAP PO PRN ×2 (07:43→18:40)
[2023-01-29] MEDS: LACTOBACILLUS ACIDOPHILUS CAP (BACID) PO SCH ×2 (07:43→17:17)
[2023-01-29 07:44] LABS: HEMATOCRIT 25.9 % (36.0-47.0); HEMOGLOBIN 8.6 g/dl (12.0-15.5); MEAN CORPUSCULAR HEMOGLOBIN 36.6 pg (27.0-33.0); MEAN CORPUSCULAR HGB CONC 33.2 g/dl (32.0-36.5); MEAN CORPUSCULAR VOLUME 110.2 fl (80.0-96.0); PLATELET COUNT, AUTOMATED 121 10^3/uL (150-450); RED BLOOD COUNT 2.35 10^6/uL (4.00-5.40); WHITE BLOOD COUNT 14.3 10^3/uL (4.0-10.0)
[2023-01-29 08:09] LABS: LYMPHOCYTES 12 % (16-44); MONOCYTES 3 % (0-5); NEUTROPHILS 79 % (28-66)
[2023-01-29 08:13] LABS: ANISOCYTOSIS 2+; DOHLE BODIES 1+
[2023-01-29 08:14] LABS: POLYCHROMASIA 1+; TEAR DROP CELLS 2+
[2023-01-29 08:15] LABS: PLATELET ESTIMATE DECREASED (NORMAL)
[2023-01-29 08:16] LABS: POIKILOCYTOSIS 1+
[2023-01-29 08:18] LABS: BLOOD UREA NITROGEN 8 MG/DL (9-23); CALCIUM LEVEL 7.7 MG/DL (8.5-10.1); CARBON DIOXIDE LEVEL 24 MMOL/L (20-31); CHLORIDE LEVEL 109 MMOL/L (98-107); CREATININE FOR GFR 0.81 MG/DL (0.55-1.30); GLOMERULAR FILTRATION RATE > 60.0 (>51); GLUCOSE, FASTING 65 MG/DL (60-100); MAGNESIUM LEVEL 1.9 MG/DL (1.8-2.4); POTASSIUM SERUM 3.8 MMOL/L (3.5-5.1); SODIUM LEVEL 140 MMOL/L (136-145)
[2023-01-29] MEDS: GABAPENTIN 100 MG CAP PO SCH ×2 (08:36→21:02)
[2023-01-29] MEDS: CitaloPRAM (CeleXA) 20 MG TAB PO SCH (08:36)
[2023-01-29] MEDS: TAMSULOSIN 0.4 MG CAP PO SCH (08:36)
[2023-01-29] MEDS: ATORVASTATIN 20 MG TAB PO SCH (08:37)
[2023-01-29] MEDS: ENOXAPARIN 40MG/0.4ML SYRINGE (J1650 PER 10MG) SC SCH (08:37)
[2023-01-29] MEDS ORDERED: predniSONE 20 MG TAB PO ONE (09:25)
[2023-01-29 12:52] LABS: BASO # 0.1 10^3/uL (0.0-0.2); BASO % 0.6 % (0.0-1.0); EOS % 0.1 % (0.0-3.0); HEMATOCRIT 24.7 % (36.0-47.0); HEMOGLOBIN 8.4 g/dl (12.0-15.5); LYMPH # 1.6 10^3/uL (1.5-5.0); MEAN CORPUSCULAR HEMOGLOBIN 37.2 pg (27.0-33.0); MEAN CORPUSCULAR VOLUME 109.3 fl (80.0-96.0); MONO # 1.4 10^3/uL (0.0-0.8); MONO % 9.1 % (2.0-8.0); NEUTROPHILS # 12.2 10^3/uL (1.5-8.5); NEUTROPHILS % 77.6 % (36.0-66.0); PLATELET COUNT, AUTOMATED 108 10^3/uL (150-450); RED BLOOD COUNT 2.26 10^6/uL (4.00-5.40); WHITE BLOOD COUNT 15.7 10^3/uL (4.0-10.0)
[2023-01-29 13:17] LABS: ALBUMIN 2.8 G/DL (3.2-5.2); ALKALINE PHOSPHATASE 100 U/L (46-116); ALT/SGPT 17 U/L (7.0-40); AST/SGOT 16 U/L (<34); BILIRUBIN,TOTAL 0.2 MG/DL (0.3-1.2); BLOOD UREA NITROGEN 6 MG/DL (9-23); CALCIUM LEVEL 7.3 MG/DL (8.5-10.1); CARBON DIOXIDE LEVEL 21 MMOL/L (20-31); CHLORIDE LEVEL 114 MMOL/L (98-107); CREATININE FOR GFR 0.77 MG/DL (0.55-1.30); GLOMERULAR FILTRATION RATE > 60.0 (>51); GLUCOSE, FASTING 96 MG/DL (60-100); POTASSIUM SERUM 3.4 MMOL/L (3.5-5.1); SODIUM LEVEL 140 MMOL/L (136-145); TOTAL PROTEIN 4.7 G/DL (5.7-8.2)
[2023-01-29 15:07] LABS: APPEARANCE, URINE HAZY (CLEAR); BACTERIA, URINE AUTO 1+ (NEGATIVE); BILIRUBIN, URINE AUTO NEGATIVE (NEGATIVE); BLOOD, URINE BLOOD 1+ (NEGATIVE); COLOR, URINE YELLOW (YELLOW); GLUCOSE, URINE (UA) AUTO NEGATIVE (NEGATIVE); KETONE, URINE AUTO NEGATIVE (NEGATIVE); LEUKOCYTE ESTERASE, URINE AUTO NEGATIVE (NEGATIVE); NITRITE, URINE AUTO POSITIVE (NEGATIVE); PROTEIN, URINE AUTO NEGATIVE (NEGATIVE); RBC, URINE AUTO 1 /HPF (0-3); SPECIFIC GRAVITY URINE AUTO 1.006 (1.002-1.035); SQUAMOUS EPITHELIAL CELL UR AU 0 /HPF (0-6); UROBILINOGEN, URINE AUTO 0.2 mg/dL (0.0-2.0); WBC, URINE AUTO 7 /HPF (0-3)
[2023-01-29] MEDS ORDERED: POTASSIUM CHLORIDE 10MEQ SR TABLET PO ONE (16:30)
[2023-01-29] MEDS: LOMOTIL 2.5MG/0.025MG TABLET PO SCH ×2 (17:17→21:02)
[2023-01-29] MEDS: ACETAMINOPHEN 325 MG TAB PO PRN (21:02)
[2023-01-30] VITALS (10 sets, daily range): BP systolic 96–125; BP diastolic 52–76
[2023-01-30] MEDS: NS 1,000 ML IV SCH ×2 (04:01→18:44)
[2023-01-30] MEDS ORDERED: traMADol 50 MG TAB PO ONE (06:00)
[2023-01-30 06:06] LABS: HEMATOCRIT 24.8 % (36.0-47.0); HEMOGLOBIN 8.1 g/dl (12.0-15.5); MEAN CORPUSCULAR HEMOGLOBIN 36.7 pg (27.0-33.0); MEAN CORPUSCULAR HGB CONC 32.7 g/dl (32.0-36.5); MEAN CORPUSCULAR VOLUME 112.2 fl (80.0-96.0); PLATELET COUNT, AUTOMATED 107 10^3/uL (150-450); RED BLOOD COUNT 2.21 10^6/uL (4.00-5.40); WHITE BLOOD COUNT 15.9 10^3/uL (4.0-10.0)
[2023-01-30 06:26] LABS: LYMPHOCYTES 12 % (16-44); MONOCYTES 5 % (0-5); MYELOCYTES 1 % (0-0); NEUTROPHILS 79 % (28-66)
[2023-01-30 06:28] LABS: ANISOCYTOSIS 2+; PLATELET ESTIMATE DECREASED (NORMAL); TEAR DROP CELLS 1+
[2023-01-30 06:31] LABS: POLYCHROMASIA 1+
[2023-01-30 06:44] LABS: BLOOD UREA NITROGEN < 5 MG/DL (9-23); CALCIUM LEVEL 7.4 MG/DL (8.5-10.1); CARBON DIOXIDE LEVEL 23 MMOL/L (20-31); CHLORIDE LEVEL 115 MMOL/L (98-107); CREATININE FOR GFR 0.74 MG/DL (0.55-1.30); GLOMERULAR FILTRATION RATE > 60.0 (>51); GLUCOSE, FASTING 64 MG/DL (60-100); MAGNESIUM LEVEL 1.3 MG/DL (1.8-2.4); POTASSIUM SERUM 3.3 MMOL/L (3.5-5.1); SODIUM LEVEL 142 MMOL/L (136-145)
[2023-01-30] MEDS: LACTOBACILLUS ACIDOPHILUS CAP (BACID) PO SCH ×2 (07:34→17:31)
[2023-01-30] MEDS: MAG SULF 1GM/100ML (MAG RUN) 1 GM in IV 1 EA IV SCH ×4 (07:34→11:57)
[2023-01-30] MEDS ORDERED: POTASSIUM CHLORIDE 10% LIQ 20MEQ/15ML UDC PO ONE (08:00)
[2023-01-30] MEDS: ATORVASTATIN 20 MG TAB PO SCH (09:00)
[2023-01-30] MEDS: ENOXAPARIN 40MG/0.4ML SYRINGE (J1650 PER 10MG) SC SCH (09:07)
[2023-01-30] MEDS: LOMOTIL 2.5MG/0.025MG TABLET PO SCH ×4 (09:08→20:53)
[2023-01-30] MEDS: GABAPENTIN 100 MG CAP PO SCH ×2 (09:08→20:45)
[2023-01-30] MEDS: TAMSULOSIN 0.4 MG CAP PO SCH (09:08)
[2023-01-30] MEDS: CitaloPRAM (CeleXA) 20 MG TAB PO SCH (09:08)
[2023-01-30] MEDS: PROCHLORPERAZINE 5MG TAB PO PRN ×2 (10:43→18:44)
[2023-01-30] MEDS ORDERED: SODIUM CHLORIDE 0.9% INJ 10 ML SYR IV PRN (15:40)
[2023-01-30] MEDS ORDERED: methocarbamoL 500 MG TAB PO PRN (20:20)
[2023-01-30] MEDS ORDERED: LIDOCAINE VISCOUS 2% SOLN 15ML UDC PO PRN (20:20)
[2023-01-30] MEDS ORDERED: CHLORASEPTIC SPRAY MT PRN (20:20)
[2023-01-30] MEDS: MAGNESIUM OXIDE 400MG TAB (MAG-OX) PO SCH (20:46)
[2023-01-30] MEDS: traMADol 50 MG TAB PO PRN (20:55)
[2023-01-30] MEDS: diphenhydrAMINE 25MG CAP PO PRN (20:56)
[2023-01-31] VITALS (7 sets, daily range): BP systolic 101–110; BP diastolic 61–84
[2023-01-31] MEDS ORDERED: ACETAMINOPHEN TAB 650MG DOSE (2X325MG) PO ONE (02:00)
[2023-01-31 02:31] LABS: BASO # 0.1 10^3/uL (0.0-0.2); BASO % 0.4 % (0.0-1.0); HEMATOCRIT 29.2 % (36.0-47.0); HEMOGLOBIN 9.7 g/dl (12.0-15.5); LYMPH # 1.9 10^3/uL (1.5-5.0); LYMPH % 11.4 % (24.0-44.0); MEAN CORPUSCULAR HEMOGLOBIN 35.3 pg (27.0-33.0); MEAN CORPUSCULAR HGB CONC 33.2 g/dl (32.0-36.5); MEAN CORPUSCULAR VOLUME 106.2 fl (80.0-96.0); MONO # 1.3 10^3/uL (0.0-0.8); MONO % 7.6 % (2.0-8.0); NEUTROPHILS # 13.1 10^3/uL (1.5-8.5); NEUTROPHILS % 78.9 % (36.0-66.0); PLATELET COUNT, AUTOMATED 110 10^3/uL (150-450); RED BLOOD COUNT 2.75 10^6/uL (4.00-5.40); WHITE BLOOD COUNT 16.6 10^3/uL (4.0-10.0)
[2023-01-31 02:49] LABS: BLOOD UREA NITROGEN < 5 MG/DL (9-23); CALCIUM LEVEL 7.8 MG/DL (8.5-10.1); CARBON DIOXIDE LEVEL 26 MMOL/L (20-31); CHLORIDE LEVEL 108 MMOL/L (98-107); CREATININE FOR GFR 0.84 MG/DL (0.55-1.30); GLOMERULAR FILTRATION RATE > 60.0 (>51); GLUCOSE, FASTING 80 MG/DL (60-100); POTASSIUM SERUM 3.4 MMOL/L (3.5-5.1); SODIUM LEVEL 138 MMOL/L (136-145)
[2023-01-31] MEDS: PIPERACILLIN/TAZOBACTAM SOD 3.375 GM in D5W MINI-BAG PLUS 50 ML IV SCH ×4 (04:07→21:08)
[2023-01-31] MEDS: NS 1,000 ML IV SCH (06:09)
[2023-01-31 06:20] LABS: MAGNESIUM LEVEL 1.5 MG/DL (1.8-2.4)
[2023-01-31] MEDS ORDERED: POTASSIUM CHLORIDE 10MEQ SR TABLET PO ONE (07:20)
[2023-01-31] MEDS: SODIUM CHLORIDE 0.9% INJ 10 ML SYR IV SCH (09:00)
[2023-01-31] MEDS: ATORVASTATIN 20 MG TAB PO SCH (09:00)
[2023-01-31] MEDS: ACETAMINOPHEN 325 MG TAB PO PRN (09:37)
[2023-01-31] MEDS: ENOXAPARIN 40MG/0.4ML SYRINGE (J1650 PER 10MG) SC SCH (09:37)
[2023-01-31] MEDS: GABAPENTIN 100 MG CAP PO SCH ×2 (09:38→21:00)
[2023-01-31] MEDS: LACTOBACILLUS ACIDOPHILUS CAP (BACID) PO SCH ×2 (09:38→17:15)
[2023-01-31] MEDS: LOMOTIL 2.5MG/0.025MG TABLET PO SCH ×4 (09:38→21:04)
[2023-01-31] MEDS: PROCHLORPERAZINE 5MG TAB PO PRN ×2 (09:39→21:03)
[2023-01-31] MEDS: CitaloPRAM (CeleXA) 20 MG TAB PO SCH (09:39)
[2023-01-31] MEDS: POTASSIUM CHLORIDE 10MEQ SR TABLET PO SCH (11:20)
[2023-01-31] MEDS: MAGNESIUM OXIDE 400MG TAB (MAG-OX) PO SCH ×2 (11:21→21:00)
[2023-01-31] MEDS ORDERED: KCL 10MEQ/100ML SWI (KRUN) 10 MEQ in IV 1 EA IV SCH (12:00)
[2023-01-31] MEDS ORDERED: KCL 20MEQ IN 100ML SWI (KRUN) 20 MEQ in IV 1 EA IV ONE ×2 (12:00)
[2023-01-31] MEDS: MAG SULF 1GM/100ML (MAG RUN) 1 GM in IV 1 EA IV SCH ×3 (13:57→16:44)
[2023-01-31] MEDS: OMEPRAZOLE 20MG CAP PO SCH (13:57)
[2023-01-31] MEDS ORDERED: MAG SULF 1GM/100ML (MAG RUN) 1 GM in IV 1 EA IV SCH (14:00)
[2023-01-31 15:05] LABS: CLOSTRIDIUM DIFFICILE PCR NEGATIVE (NEGATIVE)
[2023-01-31] MEDS: GASTROGRAFIN SOLUTION 30ML PO SCH ×2 (16:30→17:00)
[2023-01-31] MEDS ORDERED: ISOVUE-370 76% 100ML VIAL As Ordered ONE (16:43)
[2023-01-31 17:20] LABS: LIPASE 19 U/L (12-53)
[2023-01-31 17:22] LABS: ALBUMIN 2.6 G/DL (3.2-5.2); ALKALINE PHOSPHATASE 123 U/L (46-116); ALT/SGPT < 9 U/L (7.0-40); AST/SGOT 16 U/L (<34); BILIRUBIN,DIRECT 0.1 MG/DL (<0.4); BILIRUBIN,TOTAL 0.3 MG/DL (0.3-1.2); TOTAL PROTEIN 4.7 G/DL (5.7-8.2)
[2023-01-31] MEDS: traMADol 50 MG TAB PO PRN (21:04)
[2023-02-01 01:00] VITALS: BP 106/68
[2023-02-01] MEDS: NS 1,000 ML IV SCH ×2 (04:04→07:40)
[2023-02-01] MEDS: PIPERACILLIN/TAZOBACTAM SOD 3.375 GM in D5W MINI-BAG PLUS 50 ML IV SCH ×3 (04:04→16:52)
[2023-02-01 05:02] VITALS: BP 102/58
[2023-02-01 05:57] LABS: BASO % 0.2 % (0.0-1.0); EOS % 0.1 % (0.0-3.0); HEMATOCRIT 27.4 % (36.0-47.0); HEMOGLOBIN 9.1 g/dl (12.0-15.5); LYMPH # 1.7 10^3/uL (1.5-5.0); LYMPH % 13.4 % (24.0-44.0); MEAN CORPUSCULAR HEMOGLOBIN 34.9 pg (27.0-33.0); MEAN CORPUSCULAR HGB CONC 33.2 g/dl (32.0-36.5); MONO % 7.7 % (2.0-8.0); NEUTROPHILS # 9.6 10^3/uL (1.5-8.5); NEUTROPHILS % 77.6 % (36.0-66.0); RED BLOOD COUNT 2.61 10^6/uL (4.00-5.40); WHITE BLOOD COUNT 12.4 10^3/uL (4.0-10.0)
[2023-02-01 06:04] LABS: PLATELET COUNT, AUTOMATED 98 10^3/uL (150-450)
[2023-02-01 06:17] LABS: BLOOD UREA NITROGEN 5 MG/DL (9-23); CALCIUM LEVEL 7.5 MG/DL (8.5-10.1); CARBON DIOXIDE LEVEL 28 MMOL/L (20-31); CHLORIDE LEVEL 105 MMOL/L (98-107); GLOMERULAR FILTRATION RATE > 60.0 (>51); GLUCOSE, FASTING 87 MG/DL (60-100); POTASSIUM SERUM 3.2 MMOL/L (3.5-5.1); SODIUM LEVEL 138 MMOL/L (136-145)
[2023-02-01 07:18] VITALS: BP 105/62
[2023-02-01] MEDS ORDERED: RIVAROXABAN 10MG TAB (XARELTO) PO SCH (08:00)
[2023-02-01] MEDS: SODIUM CHLORIDE 0.9% INJ 10 ML SYR IV SCH (08:20)
[2023-02-01] MEDS: LACTOBACILLUS ACIDOPHILUS CAP (BACID) PO SCH (08:20)
[2023-02-01] MEDS: LOMOTIL 2.5MG/0.025MG TABLET PO SCH ×3 (08:20→16:52)
[2023-02-01] MEDS: GABAPENTIN 100 MG CAP PO SCH (08:21)
[2023-02-01] MEDS: CitaloPRAM (CeleXA) 20 MG TAB PO SCH (08:21)
[2023-02-01] MEDS: OMEPRAZOLE 20MG CAP PO SCH (08:21)
[2023-02-01] MEDS: KCL 20MEQ IN 100ML SWI (KRUN) 20 MEQ in IV 1 EA IV SCH ×4 (08:22→09:40)
[2023-02-01] MEDS: ATORVASTATIN 20 MG TAB PO SCH (08:24)
[2023-02-01] MEDS: POTASSIUM CHLORIDE 10MEQ SR TABLET PO SCH (08:28)
[2023-02-01 08:29] LABS: MAGNESIUM LEVEL 1.6 MG/DL (1.8-2.4)
[2023-02-01] MEDS: MAGNESIUM OXIDE 400MG TAB (MAG-OX) PO SCH (09:00)
[2023-02-01 11:08] VITALS: BP 112/72
[2023-02-01] MEDS: ACETAMINOPHEN 325 MG TAB PO PRN (11:18)
[2023-02-01] MEDS: PROCHLORPERAZINE 5MG TAB PO PRN (11:18)
[2023-02-01] MEDS: MAG SULF 1GM/100ML (MAG RUN) 1 GM in IV 1 EA IV SCH ×2 (12:40→13:00)
[2023-02-01] MEDS ORDERED: POTA-151 PO (16:38)
[2023-02-01] MEDS ORDERED: PROBCAP14 PO (16:38)
[2023-02-01] MEDS ORDERED: CEFD300CAP PO (16:38)
[2023-02-01] MEDS ORDERED: MAGN500C2 PO (16:38)
== END 2023-02-01 18:50 | disposition home or self-care (01) | DRG 312 ==
LOC: M ED 09:30 → M ED INP 14:41 → ENRESERV 16:07 → M PCU 16:24 → OBSVTOIN 01-31 07:02
PROVIDERS: ADMIT Internal Medicine; ATTEND Internal Medicine
PROC: 30233N1 Transfusion of Nonautologous Red Blood Cells into Peripheral Vein, Percutaneous Approach (ICD-10-PCS; principal; 2023-01-30)
DX: I95.1 Orthostatic hypotension (principal); D61.810 Antineoplastic chemotherapy induced pancytopenia; N39.0 Urinary tract infection, site not specified; E78.5 Hyperlipidemia, unspecified; E87.6 Hypokalemia; L50.9 Urticaria, unspecified; E83.42 Hypomagnesemia; F41.9 Anxiety disorder, unspecified; Z85.41 Personal history of malignant neoplasm of cervix uteri; Z90.79 Acquired absence of other genital organ(s); C50.911 Malignant neoplasm of unspecified site of right female breast; Z92.21 Personal history of antineoplastic chemotherapy; M51.36 Other intervertebral disc degeneration, lumbar region; Z79.899 Other long term (current) drug therapy; Z98.84 Bariatric surgery status; Z87.891 Personal history of nicotine dependence; Z79.52 Long term (current) use of systemic steroids; Z88.1 Allergy status to other antibiotic agents; Z91.048 Other nonmedicinal substance allergy status

== ENCOUNTER → 2023-02-17 | Outpatient (CLI) | payer OTHER ==
[~2023-02-17] MED LIST changes: +CEFD300CAP PO; +CHOL125C6 PO; +MAGN500C2 PO; +POTA-151 PO; +PROBCAP14 PO
== END ==
LOC: M ONCR 08:51
PROVIDERS: ATTEND General Practice
DX: C50.411 Malignant neoplasm of upper-outer quadrant of right female breast (principal); Z92.21 Personal history of antineoplastic chemotherapy; Z71.2 Person consulting for explanation of examination or test findings; E78.5 Hyperlipidemia, unspecified; F41.9 Anxiety disorder, unspecified; M19.90 Unspecified osteoarthritis, unspecified site; Z79.52 Long term (current) use of systemic steroids; Z79.899 Other long term (current) drug therapy; Z88.1 Allergy status to other antibiotic agents; Z91.018 Allergy to other foods; Z85.41 Personal history of malignant neoplasm of cervix uteri; Z87.442 Personal history of urinary calculi; Z90.710 Acquired absence of both cervix and uterus; Z98.890 Other specified postprocedural states; Z98.84 Bariatric surgery status; Z87.891 Personal history of nicotine dependence

== ENCOUNTER 2023-03-10 10:54 | Observation (INO) | payer OTHER ==
[~2023-03-10] VITALS: Ht 167.6 cm; Wt 59.2 kg
[~2023-03-10 10:54] MED LIST changes: -LIDO1CRE42 TOP; +LIDO30CR18 TOP
[2023-03-10] MEDS ORDERED: ONDANSETRON 4MG 2ML VIAL IV ONE (11:45)
[2023-03-10] MEDS ORDERED: MORPHINE 4 MG/ML 1ML VIAL IV PRN (11:45)
[2023-03-10] MEDS ORDERED: NS 1,000 ML IV SCH ×2 (11:45→14:05)
[2023-03-10 12:27] LABS: BASO % 0.3 % (0.0-1.0); EOS % 0.3 % (0.0-3.0); HEMATOCRIT 31.4 % (36.0-47.0); HEMOGLOBIN 10.3 g/dl (12.0-15.5); LYMPH # 1.7 10^3/uL (1.5-5.0); LYMPH % 28.2 % (24.0-44.0); MEAN CORPUSCULAR HEMOGLOBIN 36.3 pg (27.0-33.0); MEAN CORPUSCULAR HGB CONC 32.8 g/dl (32.0-36.5); MEAN CORPUSCULAR VOLUME 110.6 fl (80.0-96.0); MONO # 0.4 10^3/uL (0.0-0.8); MONO % 6.6 % (2.0-8.0); NEUTROPHILS # 3.9 10^3/uL (1.5-8.5); NEUTROPHILS % 64.3 % (36.0-66.0); PLATELET COUNT, AUTOMATED 231 10^3/uL (150-450); RED BLOOD COUNT 2.84 10^6/uL (4.00-5.40); WHITE BLOOD COUNT 6.1 10^3/uL (4.0-10.0)
[2023-03-10 12:45] LABS: INR 0.96
[2023-03-10 12:50] LABS: BLOOD UREA NITROGEN 10 MG/DL (9-23); CALCIUM LEVEL 8.6 MG/DL (8.5-10.1); CARBON DIOXIDE LEVEL 27 MMOL/L (20-31); CHLORIDE LEVEL 107 MMOL/L (98-107); CREATININE FOR GFR 0.65 MG/DL (0.55-1.30); GLOMERULAR FILTRATION RATE > 60.0 (>51); GLUCOSE, FASTING 86 MG/DL (60-100); POTASSIUM SERUM 3.5 MMOL/L (3.5-5.1); SODIUM LEVEL 141 MMOL/L (136-145)
[2023-03-10] MEDS ORDERED: LOMO2.5T PO (13:51)
[2023-03-10] MEDS ORDERED: EPIN0.3I11 IM (13:51)
[2023-03-10] MEDS ORDERED: VITA500T40 PO (13:51)
[2023-03-10] MEDS ORDERED: TRAM50TA2 PO (13:51)
[2023-03-10] MEDS ORDERED: BIOT1CAP2 PO (13:52)
[2023-03-10] MEDS ORDERED: FOLI800T3 PO (13:52)
[2023-03-10] MEDS ORDERED: HOME MED LIST COMPLETE! XX SCH (13:55)
[2023-03-10] MEDS ORDERED: MORPHINE 2 MG/ML 1ML VIAL IV PRN (14:05)
[2023-03-10] MEDS ORDERED: KETOROLAC 30 MG/ML 1ML VIAL IV PRN (14:05)
[2023-03-10 16:00] VITALS: BP 128/72; TEMP 97.5; O2SAT 100
[2023-03-10] MEDS: MORPHINE 4 MG/ML 1ML VIAL IV PRN ×2 (16:34→20:50)
[2023-03-10] MEDS: PANTOPRAZOLE 40MG VIAL IV SCH (18:18)
[2023-03-10] MEDS: ONDANSETRON 4MG 2ML VIAL IV PRN (18:45)
[2023-03-10] MEDS ORDERED: PROMETHAZINE 25MG/ML 1ML VIAL IV ONE (21:00)
[2023-03-10 21:46] VITALS: BP 113/59; TEMP 97.3; O2SAT 99
[2023-03-11] VITALS (7 sets, daily range): BP systolic 95–122; BP diastolic 61–79; TEMP 96.7–97.7; O2SAT 96–99
[2023-03-11] MEDS: MORPHINE 4 MG/ML 1ML VIAL IV PRN ×3 (01:15→10:26)
[2023-03-11] MEDS: NS 1,000 ML IV SCH ×2 (01:15→13:30)
[2023-03-11 06:38] LABS: HEMATOCRIT 29.5 % (36.0-47.0); HEMOGLOBIN 9.5 g/dl (12.0-15.5); MEAN CORPUSCULAR HEMOGLOBIN 36.5 pg (27.0-33.0); MEAN CORPUSCULAR HGB CONC 32.2 g/dl (32.0-36.5); MEAN CORPUSCULAR VOLUME 113.5 fl (80.0-96.0); PLATELET COUNT, AUTOMATED 181 10^3/uL (150-450); WHITE BLOOD COUNT 5.9 10^3/uL (4.0-10.0)
[2023-03-11 07:11] LABS: ALBUMIN 2.3 G/DL (3.2-5.2); ALKALINE PHOSPHATASE 86 U/L (46-116); ALT/SGPT 26 U/L (7.0-40); AST/SGOT 22 U/L (<34); BILIRUBIN,TOTAL 0.4 MG/DL (0.3-1.2); BLOOD UREA NITROGEN 7 MG/DL (9-23); CALCIUM LEVEL 8.3 MG/DL (8.5-10.1); CARBON DIOXIDE LEVEL 28 MMOL/L (20-31); CHLORIDE LEVEL 110 MMOL/L (98-107); CREATININE FOR GFR 0.68 MG/DL (0.55-1.30); GLOMERULAR FILTRATION RATE > 60.0 (>51); GLUCOSE, FASTING 77 MG/DL (60-100); POTASSIUM SERUM 3.3 MMOL/L (3.5-5.1); SODIUM LEVEL 144 MMOL/L (136-145); TOTAL PROTEIN 4.7 G/DL (5.7-8.2)
[2023-03-11] MEDS: PANTOPRAZOLE 40MG VIAL IV SCH (10:26)
[2023-03-11] MEDS: ATORVASTATIN 20 MG TAB PO SCH (10:26)
[2023-03-11] MEDS: CitaloPRAM (CeleXA) 20 MG TAB PO SCH (10:27)
[2023-03-11] MEDS: GABAPENTIN 100 MG CAP PO SCH (10:27)
[2023-03-11] MEDS ORDERED: POTASSIUM CHLORIDE 10MEQ SR TABLET PO ONE (12:30)
[2023-03-11] MEDS ORDERED: LR 1,000 ML IV SCH ×2 (12:50→16:30)
[2023-03-11] MEDS ORDERED: SCOPOLAMINE 1MG TRANSDERMAL PATCH TOP ONE (12:50)
[2023-03-11] MEDS ORDERED: fentaNYL 100 MCG/2 ML INJECTION IV PRN ×2 (12:50→16:30)
[2023-03-11] MEDS ORDERED: LIDOCAINE 1% SDV 5ML VIAL PN ONE (12:50)
[2023-03-11] MEDS ORDERED: MIDAZOLAM INJ 2MG/2ML VIAL IV PRN (12:50)
[2023-03-11] MEDS ORDERED: EPINEPHrine INJ 1 MG/ML 1ML AMP PN ONE (12:50)
[2023-03-11] MEDS ORDERED: ROPIvacaine 0.5% 30ML VIAL PN ONE (12:50)
[2023-03-11] MEDS ORDERED: dexAMETHasone 10MG/1ML VIAL PRES.FREE PN ONE (12:50)
[2023-03-11] MEDS ORDERED: LIDOCAINE 2% 100MG/5ML SDV (FOR ANES.) As Ordered ONE (13:37)
[2023-03-11] MEDS ORDERED: propofoL 200 MG/20 ML VIAL As Ordered ONE (13:37)
[2023-03-11] MEDS ORDERED: fentaNYL 100 MCG/2 ML INJECTION As Ordered ONE (13:37)
[2023-03-11] MEDS ORDERED: MIDAZOLAM INJ 2MG/2ML VIAL As Ordered ONE (13:37)
[2023-03-11] MEDS ORDERED: ONDANSETRON 4MG 2ML VIAL As Ordered ONE (13:37)
[2023-03-11] MEDS ORDERED: KETOROLAC 60MG 2ML VIAL As Ordered ONE (13:37)
[2023-03-11] MEDS ORDERED: ROCURONIUM BROMIDE 50MG/5ML VIAL As Ordered ONE (13:45)
[2023-03-11] MEDS ORDERED: ceFAZolin 1GM VIAL As Ordered ONE (14:22)
[2023-03-11] MEDS ORDERED: METOCLOPRAMIDE INJ 10MG/2ML VIAL IV PRN (16:30)
[2023-03-11] MEDS ORDERED: MORPHINE 2 MG/ML 1ML VIAL IV PRN (16:30)
[2023-03-11] MEDS ORDERED: oxyCODONE 5MG TAB PO PRN (16:30)
[2023-03-11] MEDS ORDERED: ONDANSETRON 4MG 2ML VIAL IV PRN (16:30)
[2023-03-12] MEDS: NS 1,000 ML IV SCH (01:49)
[2023-03-12] MEDS: MORPHINE 4 MG/ML 1ML VIAL IV PRN ×3 (01:53→11:19)
[2023-03-12 02:00] VITALS: BP 96/65; TEMP 97.3; O2SAT 98
[2023-03-12 06:27] VITALS: BP 116/57; TEMP 97.2; O2SAT 97
[2023-03-12 08:16] LABS: HEMATOCRIT 25.6 % (36.0-47.0); HEMOGLOBIN 8.1 g/dl (12.0-15.5); MEAN CORPUSCULAR HEMOGLOBIN 36.3 pg (27.0-33.0); MEAN CORPUSCULAR HGB CONC 31.6 g/dl (32.0-36.5); PLATELET COUNT, AUTOMATED 179 10^3/uL (150-450); RED BLOOD COUNT 2.23 10^6/uL (4.00-5.40); WHITE BLOOD COUNT 7.3 10^3/uL (4.0-10.0)
[2023-03-12 08:42] LABS: ALBUMIN 2.1 G/DL (3.2-5.2); ALKALINE PHOSPHATASE 83 U/L (46-116); ALT/SGPT 42 U/L (7.0-40); AST/SGOT 34 U/L (<34); BILIRUBIN,TOTAL 0.4 MG/DL (0.3-1.2); BLOOD UREA NITROGEN 12 MG/DL (9-23); CALCIUM LEVEL 8.4 MG/DL (8.5-10.1); CARBON DIOXIDE LEVEL 28 MMOL/L (20-31); CHLORIDE LEVEL 109 MMOL/L (98-107); CREATININE FOR GFR 0.66 MG/DL (0.55-1.30); GLOMERULAR FILTRATION RATE > 60.0 (>51); GLUCOSE, FASTING 129 MG/DL (60-100); MEAN CORPUSCULAR VOLUME 114.8 fl (80.0-96.0); POTASSIUM SERUM 3.8 MMOL/L (3.5-5.1); SODIUM LEVEL 143 MMOL/L (136-145); TOTAL PROTEIN 4.2 G/DL (5.7-8.2)
[2023-03-12] MEDS: PANTOPRAZOLE 40MG VIAL IV SCH (08:52)
[2023-03-12] MEDS: ATORVASTATIN 20 MG TAB PO SCH (08:52)
[2023-03-12] MEDS: CitaloPRAM (CeleXA) 20 MG TAB PO SCH (08:52)
[2023-03-12] MEDS: GABAPENTIN 100 MG CAP PO SCH (08:52)
[2023-03-12 10:12] VITALS: BP 111/61; TEMP 97.9; O2SAT 99
[2023-03-12] MEDS: ONDANSETRON 4MG 2ML VIAL IV PRN (11:19)
[2023-03-12] MEDS: PERCOCET 5MG/325MG TAB PO PRN ×2 (15:14→19:36)
[2023-03-12 15:34] VITALS: BP 113/32; TEMP 97.9; O2SAT 97
[2023-03-12] MEDS: ceFAZolin SOD 2 GM in IV 1 EA IV SCH (21:18)
[2023-03-12 22:00] VITALS: BP 122/64; TEMP 98.1; O2SAT 95
[2023-03-13] VITALS (11 sets, daily range): BP systolic 96–124; BP diastolic 60–78; TEMP 97.3–97.9; O2SAT 95–96
[2023-03-13] MEDS: ONDANSETRON 4MG 2ML VIAL IV PRN ×3 (00:58→17:40)
[2023-03-13] MEDS: PERCOCET 5MG/325MG TAB PO PRN ×5 (03:49→20:43)
[2023-03-13] MEDS: ceFAZolin SOD 2 GM in IV 1 EA IV SCH (05:48)
[2023-03-13] MEDS ORDERED: KETOROLAC 30 MG/ML 1ML VIAL IV ONE (07:30)
[2023-03-13 08:23] LABS: MEAN CORPUSCULAR HEMOGLOBIN 35.9 pg (27.0-33.0); MEAN CORPUSCULAR HGB CONC 31.4 g/dl (32.0-36.5); PLATELET COUNT, AUTOMATED 160 10^3/uL (150-450); RED BLOOD COUNT 1.92 10^6/uL (4.00-5.40); WHITE BLOOD COUNT 6.3 10^3/uL (4.0-10.0)
[2023-03-13 08:27] LABS: HEMOGLOBIN 6.9 g/dl (12.0-15.5); MEAN CORPUSCULAR VOLUME 114.6 fl (80.0-96.0)
[2023-03-13 08:54] LABS: ALBUMIN 1.8 G/DL (3.2-5.2); ALKALINE PHOSPHATASE 67 U/L (46-116); ALT/SGPT 31 U/L (7.0-40); AST/SGOT 29 U/L (<34); BILIRUBIN,TOTAL 0.2 MG/DL (0.3-1.2); BLOOD UREA NITROGEN 11 MG/DL (9-23); CALCIUM LEVEL 7.6 MG/DL (8.5-10.1); CARBON DIOXIDE LEVEL 29 MMOL/L (20-31); CHLORIDE LEVEL 110 MMOL/L (98-107); CREATININE FOR GFR 0.65 MG/DL (0.55-1.30); GLOMERULAR FILTRATION RATE > 60.0 (>51); GLUCOSE, FASTING 81 MG/DL (60-100); POTASSIUM SERUM 3.6 MMOL/L (3.5-5.1); SODIUM LEVEL 145 MMOL/L (136-145); TOTAL PROTEIN 3.8 G/DL (5.7-8.2)
[2023-03-13] MEDS: GABAPENTIN 100 MG CAP PO SCH (09:21)
[2023-03-13] MEDS: CitaloPRAM (CeleXA) 20 MG TAB PO SCH (09:21)
[2023-03-13] MEDS: PANTOPRAZOLE 40MG VIAL IV SCH (09:21)
[2023-03-13] MEDS: ATORVASTATIN 20 MG TAB PO SCH (09:21)
[2023-03-13] MEDS ORDERED: LIDOCAINE 5% (LIDODERM) PATCH TD ONE (14:45)
[2023-03-13] MEDS: DOCUSATE SODIUM 100MG CAPSULE PO SCH (20:42)
[2023-03-13] MEDS: SENNA 8.6 MG TAB (SENOKOT) PO SCH (20:42)
[2023-03-13 21:13] LABS: HEMATOCRIT 31.4 % (36.0-47.0); MEAN CORPUSCULAR HEMOGLOBIN 33.3 pg (27.0-33.0); MEAN CORPUSCULAR HGB CONC 32.2 g/dl (32.0-36.5); MEAN CORPUSCULAR VOLUME 103.6 fl (80.0-96.0); PLATELET COUNT, AUTOMATED 156 10^3/uL (150-450); RED BLOOD COUNT 3.03 10^6/uL (4.00-5.40); WHITE BLOOD COUNT 6.3 10^3/uL (4.0-10.0)
[2023-03-13 21:22] LABS: HEMOGLOBIN 10.1 g/dl (12.0-15.5)
[2023-03-14] MEDS: PERCOCET 5MG/325MG TAB PO PRN ×5 (03:44→22:24)
[2023-03-14 06:00] VITALS: BP 126/76; TEMP 97.5; O2SAT 95
[2023-03-14 06:20] LABS: HEMATOCRIT 30.7 % (36.0-47.0); HEMOGLOBIN 10.1 g/dl (12.0-15.5); MEAN CORPUSCULAR HGB CONC 32.9 g/dl (32.0-36.5); MEAN CORPUSCULAR VOLUME 103.4 fl (80.0-96.0); PLATELET COUNT, AUTOMATED 166 10^3/uL (150-450); RED BLOOD COUNT 2.97 10^6/uL (4.00-5.40); WHITE BLOOD COUNT 6.9 10^3/uL (4.0-10.0)
[2023-03-14 06:43] LABS: ALBUMIN 1.9 G/DL (3.2-5.2); ALKALINE PHOSPHATASE 72 U/L (46-116); ALT/SGPT 27 U/L (7.0-40); AST/SGOT 27 U/L (<34); BILIRUBIN,TOTAL 0.5 MG/DL (0.3-1.2); BLOOD UREA NITROGEN 14 MG/DL (9-23); CALCIUM LEVEL 8.1 MG/DL (8.5-10.1); CARBON DIOXIDE LEVEL 28 MMOL/L (20-31); CHLORIDE LEVEL 109 MMOL/L (98-107); CREATININE FOR GFR 0.64 MG/DL (0.55-1.30); GLOMERULAR FILTRATION RATE > 60.0 (>51); GLUCOSE, FASTING 77 MG/DL (60-100); POTASSIUM SERUM 3.6 MMOL/L (3.5-5.1); SODIUM LEVEL 142 MMOL/L (136-145); TOTAL PROTEIN 4.1 G/DL (5.7-8.2)
[2023-03-14] MEDS: GABAPENTIN 100 MG CAP PO SCH (09:14)
[2023-03-14] MEDS: CitaloPRAM (CeleXA) 20 MG TAB PO SCH (09:14)
[2023-03-14] MEDS: ATORVASTATIN 20 MG TAB PO SCH (09:14)
[2023-03-14] MEDS: DOCUSATE SODIUM 100MG CAPSULE PO SCH ×2 (09:15→20:36)
[2023-03-14] MEDS: PANTOPRAZOLE 40MG VIAL IV SCH (09:16)
[2023-03-14] MEDS: SODIUM CHLORIDE 0.9% INJ 10 ML SYR IV SCH (09:16)
[2023-03-14] MEDS: ONDANSETRON 4MG 2ML VIAL IV PRN (09:59)
[2023-03-14 14:00] VITALS: BP 115/68; TEMP 97.7; O2SAT 94
[2023-03-14] MEDS: MIRALAX *UNIT DOSE* 17GM PACKET PO PRN (18:30)
[2023-03-14] MEDS: SENNA 8.6 MG TAB (SENOKOT) PO SCH (20:35)
[2023-03-14] MEDS: ACETAMINOPHEN 325 MG TAB PO PRN (20:36)
[2023-03-15] MEDS: PERCOCET 5MG/325MG TAB PO PRN ×5 (05:29→22:45)
[2023-03-15 05:40] VITALS: BP 136/92; TEMP 97.5; O2SAT 95
[2023-03-15 06:14] LABS: HEMATOCRIT 30.9 % (36.0-47.0); HEMOGLOBIN 10.2 g/dl (12.0-15.5); MEAN CORPUSCULAR HEMOGLOBIN 33.9 pg (27.0-33.0); MEAN CORPUSCULAR VOLUME 102.7 fl (80.0-96.0); PLATELET COUNT, AUTOMATED 167 10^3/uL (150-450); RED BLOOD COUNT 3.01 10^6/uL (4.00-5.40); WHITE BLOOD COUNT 5.2 10^3/uL (4.0-10.0)
[2023-03-15 06:40] LABS: ALBUMIN 1.9 G/DL (3.2-5.2); ALKALINE PHOSPHATASE 75 U/L (46-116); ALT/SGPT 22 U/L (7.0-40); AST/SGOT 24 U/L (<34); BILIRUBIN,TOTAL 0.5 MG/DL (0.3-1.2); BLOOD UREA NITROGEN 11 MG/DL (9-23); CALCIUM LEVEL 7.5 MG/DL (8.5-10.1); CARBON DIOXIDE LEVEL 29 MMOL/L (20-31); CHLORIDE LEVEL 107 MMOL/L (98-107); CREATININE FOR GFR 0.58 MG/DL (0.55-1.30); GLOMERULAR FILTRATION RATE > 60.0 (>51); GLUCOSE, FASTING 79 MG/DL (60-100); POTASSIUM SERUM 3.9 MMOL/L (3.5-5.1); SODIUM LEVEL 142 MMOL/L (136-145); TOTAL PROTEIN 4.1 G/DL (5.7-8.2)
[2023-03-15] MEDS: ATORVASTATIN 20 MG TAB PO SCH (10:17)
[2023-03-15] MEDS: DOCUSATE SODIUM 100MG CAPSULE PO SCH ×2 (10:18→20:20)
[2023-03-15] MEDS: CitaloPRAM (CeleXA) 20 MG TAB PO SCH (10:18)
[2023-03-15] MEDS: GABAPENTIN 100 MG CAP PO SCH (10:18)
[2023-03-15] MEDS: PANTOPRAZOLE 40MG VIAL IV SCH (10:21)
[2023-03-15] MEDS: SODIUM CHLORIDE 0.9% INJ 10 ML SYR IV SCH (10:21)
[2023-03-15] MEDS: ONDANSETRON 4MG 2ML VIAL IV PRN (11:01)
[2023-03-15] MEDS: SODIUM CHLORIDE 0.9% INJ 10 ML SYR IV PRN (11:02)
[2023-03-15] MEDS: MIRALAX *UNIT DOSE* 17GM PACKET PO PRN (13:54)
[2023-03-15] MEDS: MOM 30ML SUSPENSION UDC PO PRN (13:55)
[2023-03-15] MEDS: SENNA 8.6 MG TAB (SENOKOT) PO SCH (20:20)
[2023-03-16 06:49] VITALS: BP 126/80; TEMP 95.4; O2SAT 96
[2023-03-16] MEDS: PERCOCET 5MG/325MG TAB PO PRN ×4 (06:49→22:41)
[2023-03-16] MEDS: PANTOPRAZOLE 40MG VIAL IV SCH (08:40)
[2023-03-16] MEDS: DOCUSATE SODIUM 100MG CAPSULE PO SCH ×2 (08:41→21:18)
[2023-03-16] MEDS: CitaloPRAM (CeleXA) 20 MG TAB PO SCH (08:41)
[2023-03-16] MEDS: MOM 30ML SUSPENSION UDC PO PRN (08:41)
[2023-03-16] MEDS: SODIUM CHLORIDE 0.9% INJ 10 ML SYR IV SCH (08:41)
[2023-03-16] MEDS: MIRALAX *UNIT DOSE* 17GM PACKET PO PRN (08:41)
[2023-03-16] MEDS: GABAPENTIN 100 MG CAP PO SCH (08:41)
[2023-03-16] MEDS: ATORVASTATIN 20 MG TAB PO SCH (08:41)
[2023-03-16] MEDS: SENNA 8.6 MG TAB (SENOKOT) PO SCH (21:19)
[2023-03-17] MEDS: PERCOCET 5MG/325MG TAB PO PRN ×4 (06:01→20:22)
[2023-03-17 06:36] VITALS: BP 117/56; TEMP 97.1; O2SAT 94
[2023-03-17] MEDS: PANTOPRAZOLE 40MG VIAL IV SCH (09:05)
[2023-03-17] MEDS: CitaloPRAM (CeleXA) 20 MG TAB PO SCH (09:05)
[2023-03-17] MEDS: DOCUSATE SODIUM 100MG CAPSULE PO SCH ×2 (09:05→20:21)
[2023-03-17] MEDS: GABAPENTIN 100 MG CAP PO SCH (09:05)
[2023-03-17] MEDS: ATORVASTATIN 20 MG TAB PO SCH (09:05)
[2023-03-17] MEDS: SODIUM CHLORIDE 0.9% INJ 10 ML SYR IV SCH (09:06)
[2023-03-17] MEDS: ONDANSETRON 4MG 2ML VIAL IV PRN (20:21)
[2023-03-17] MEDS: SENNA 8.6 MG TAB (SENOKOT) PO SCH (20:21)
[2023-03-18] MEDS: PERCOCET 5MG/325MG TAB PO PRN ×3 (01:43→10:49)
[2023-03-18 06:20] VITALS: BP 127/74; TEMP 97.7; O2SAT 96
[2023-03-18] MEDS ORDERED: PANTOPRAZOLE 40MG TAB (PROTONIX) PO SCH (09:00)
[2023-03-18] MEDS: GABAPENTIN 100 MG CAP PO SCH (09:09)
[2023-03-18] MEDS: ACETAMINOPHEN 325 MG TAB PO PRN (09:09)
[2023-03-18] MEDS: CitaloPRAM (CeleXA) 20 MG TAB PO SCH (09:10)
[2023-03-18] MEDS: DOCUSATE SODIUM 100MG CAPSULE PO SCH (09:10)
[2023-03-18] MEDS: ATORVASTATIN 20 MG TAB PO SCH (09:10)
[2023-03-18] MEDS: SODIUM CHLORIDE 0.9% INJ 10 ML SYR IV SCH (09:11)
[2023-03-18] MEDS: ONDANSETRON 4MG 2ML VIAL IV PRN (09:31)
[2023-03-18] MEDS: SODIUM CHLORIDE 0.9% INJ 10 ML SYR IV PRN (09:31)
[2023-03-18] MEDS ORDERED: COLA100C5 PO (13:45)
[2023-03-18] MEDS ORDERED: PERCOCET PO ×2 (13:45→13:52)
[2023-03-18] MEDS ORDERED: ACET32TAB PO (13:45)
[2023-03-18] MEDS ORDERED: ONDA-84 PO (13:53)
== END 2023-03-18 14:50 | disposition home or self-care (01) ==
LOC: M ED 10:54 → M ED INP 10:55 → INTOOBSV 14:05 → M ED INP 14:05 → UNDOADMOB 14:05 → OBSVTOIN 14:20 → INTOOBSV 14:20 → M MS5PR 15:45 → M ED INP 15:45 → M MS5PR 15:45
PROVIDERS: ADMIT Internal Medicine; ATTEND Family Medicine
DX: S42.492A Other displaced fracture of lower end of left humerus, initial encounter for closed fracture (principal); W01.0XXA Fall on same level from slipping, tripping and stumbling without subsequent striking against object, initial encounter; Y92.098 Other place in other non-institutional residence as the place of occurrence of the external cause; Y93.01 Activity, walking, marching and hiking; T45.1X5A Adverse effect of antineoplastic and immunosuppressive drugs, initial encounter; G62.0 Drug-induced polyneuropathy; R26.81 Unsteadiness on feet; D59.9 Acquired hemolytic anemia, unspecified; E78.5 Hyperlipidemia, unspecified; R42 Dizziness and giddiness; K21.9 Gastro-esophageal reflux disease without esophagitis; F41.9 Anxiety disorder, unspecified; G40.909 Epilepsy, unspecified, not intractable, without status epilepticus; D05.11 Intraductal carcinoma in situ of right breast; M51.9 Unspecified thoracic, thoracolumbar and lumbosacral intervertebral disc disorder; Z87.891 Personal history of nicotine dependence; Z85.41 Personal history of malignant neoplasm of cervix uteri; Z92.21 Personal history of antineoplastic chemotherapy; Z92.3 Personal history of irradiation; Z98.84 Bariatric surgery status; Z79.899 Other long term (current) drug therapy; Z88.1 Allergy status to other antibiotic agents
CPT/HCPCS: 24579; 36415; 36430; 71045; 73060; 73080; 73090; 76000; 80048; 80053; 85025; 85027; 85610; 86850; 86900; 86901; 86920; 87635; 93005; 96361; 96374; 96375; 96376; 97116; 97161; 97165; 97530; 97535; 99285; C1713; C9113; J0690; J1100; J1885; J2250; J2405; J3010; P9016

== ENCOUNTER → 2023-03-30 | Outpatient (CLI) | payer OTHER ==
[~2023-03-30] MED LIST changes: +ACET32TAB PO; +BIOT1CAP2 PO; +COLA100C5 PO; +EPIN0.3I11 IM; +FOLI800T3 PO; +LIDO1CRE42 TOP; -LIDO30CR18 TOP; +PERCOCET PO; +VITA500T40 PO
[2023-03-30 18:35] LABS: BASO % 0.7 % (0.0-1.0); EOS # 0.2 10^3/uL (0.0-0.5); EOS % 4.5 % (0.0-3.0); HEMATOCRIT 37.4 % (36.0-47.0); HEMOGLOBIN 11.9 g/dl (12.0-15.5); LYMPH # 1.6 10^3/uL (1.5-5.0); LYMPH % 39.5 % (24.0-44.0); MEAN CORPUSCULAR HEMOGLOBIN 33.5 pg (27.0-33.0); MEAN CORPUSCULAR HGB CONC 31.8 g/dl (32.0-36.5); MEAN CORPUSCULAR VOLUME 105.4 fl (80.0-96.0); MONO # 0.3 10^3/uL (0.0-0.8); MONO % 8.2 % (2.0-8.0); NEUTROPHILS # 1.9 10^3/uL (1.5-8.5); NEUTROPHILS % 46.9 % (36.0-66.0); PLATELET COUNT, AUTOMATED 305 10^3/uL (150-450); RED BLOOD COUNT 3.55 10^6/uL (4.00-5.40)
== END ==
LOC: M PLALAB 14:59
PROVIDERS: ATTEND Physician Assistant Medical
DX: D64.9 Anemia, unspecified (principal); M54.50 Low back pain, unspecified; G62.0 Drug-induced polyneuropathy

== ENCOUNTER → 2023-04-01 | Outpatient (CLI) | payer OTHER | LOC: M SOG 12:20 | PROVIDERS: ATTEND Physician Assistant | DX: S42.402A Unspecified fracture of lower end of left humerus, initial encounter for closed fracture (principal); W18.30XA Fall on same level, unspecified, initial encounter; Y92.009 Unspecified place in unspecified non-institutional (private) residence as the place of occurrence of the external cause ==

== ENCOUNTER → 2023-04-25 | Outpatient (RCR) | payer OTHER ==
[~2023-04-25] MED LIST changes: -LIDO1CRE42 TOP; +LIDO30CR18 TOP
== END ==
LOC: M ONCR 04-18 13:55
PROVIDERS: ATTEND General Practice
DX: C50.411 Malignant neoplasm of upper-outer quadrant of right female breast (principal)

== ENCOUNTER → 2023-04-27 | Outpatient (CLI) | payer OTHER | LOC: M SOG 08:49 | PROVIDERS: ATTEND Orthopaedic Surgery | DX: S42.402A Unspecified fracture of lower end of left humerus, initial encounter for closed fracture (principal); Y93.9 Activity, unspecified; Y92.9 Unspecified place or not applicable ==

== ENCOUNTER 2023-05-20 08:34 | Outpatient (RCR) | payer OTHER ==
[2023-05-26] MEDS ORDERED: FLUO1CRE4 TOP (15:29)
[2023-05-26] MEDS ORDERED: PERCOCET PO (15:29)
[2023-05-31] MEDS ORDERED: SILV1CRE60 TOP ×2 (14:21→15:36)
[2023-06-02] MEDS ORDERED: DEXA4TA PO (09:00)
[2023-06-02] MEDS ORDERED: PERCOCET PO (09:01)
== END 2023-05-26 ==
LOC: M ONCR 08:34
PROVIDERS: ATTEND General Practice
DX: Z51.0 Encounter for antineoplastic radiation therapy (principal); C50.411 Malignant neoplasm of upper-outer quadrant of right female breast

== ENCOUNTER → 2023-05-26 | Outpatient (CLI) | payer OTHER ==
[~2023-05-26] MED LIST changes: +FLUO1CRE4 TOP; +SILV1CRE60 TOP
== END ==
LOC: M ONCR 14:29
PROVIDERS: ATTEND General Practice
DX: L58.9 Radiodermatitis, unspecified (principal); Z92.3 Personal history of irradiation

== ENCOUNTER → 2023-06-02 | Outpatient (CLI) | payer OTHER | LOC: M ONCR 08:35 | PROVIDERS: ATTEND General Practice | DX: L59.8 Other specified disorders of the skin and subcutaneous tissue related to radiation (principal); Z79.891 Long term (current) use of opiate analgesic ==

== ENCOUNTER → 2023-06-07 | Outpatient (CLI) | payer OTHER | LOC: M ONCR 10:05 | PROVIDERS: ATTEND General Practice | DX: L59.8 Other specified disorders of the skin and subcutaneous tissue related to radiation (principal); N64.4 Mastodynia ==

== ENCOUNTER → 2023-06-08 | Outpatient (CLI) | payer OTHER | LOC: M SOG 08:01 | PROVIDERS: ATTEND Orthopaedic Surgery | DX: S42.402D Unspecified fracture of lower end of left humerus, subsequent encounter for fracture with routine healing (principal) ==